=== PATIENT | male | born 1965 ===

== ENCOUNTER 2016-12-17 17:31 | Inpatient (IN) | payer MEDICARE, MEDICAID ==
--- NOTE | 2016-12-17 18:15 | C.PDOC ---
History Of Present Illness 51 year old male well known to the ED presents to the ED brought in by EMS after being found intoxicated in public. Patient is poor historian due to intoxication. No medical complaints at this time. Chief Complaint (Nursing): Substance Abuse History Per: Patient History/Exam Limitations: intoxication Onset/Duration Of Symptoms: Unknown Past Medical History Reviewed: Historical Data, Nursing Documentation, Vital Signs Vital Signs: Last Vital Signs Temp 98.2 F 12/17/16 22:52 Pulse 96 H 12/17/16 22:52 Resp 20 12/17/16 22:52 BP 109/61 12/17/16 22:52 Pulse Ox 95 12/18/16 00:26 - Medical History PMH: Bipolar Disorder, Gastritis, HTN, Seizures Denies: Diabetes, Hepatitis, HIV, Chronic Kidney Disease, Sexually Transmitted Disease Surgical History: Hernia Repair (b/l inguinal) - [facility] Procedures CONTRAST AORTOGRAM (09/15/14) CONTRAST ARTERIOGRAM-LEG (09/15/14) IMMOBILIZATION OF LEFT LOWER EXTREMITY USING OTHER DEVICE (12/05/14) INJECT/INFUSE NEC (07/01/14) OP RED-INT FIX TIB/FIBUL (09/15/14) PACKED CELL TRANSFUSION (09/15/14) VACCINATION NEC (09/15/14) Family History: States: Unknown Family Hx - Social History Hx Tobacco Use: Yes Hx Alcohol Use: Yes Hx Substance Use: No Review Of Systems Review Of Systems: ROS cannot be obtained secondary to pt's inabilty to answer questions. (Intoxicated) Physical Exam - Physical Exam Appears: No Acute Distress, Other (Patient appears intoxicated ) Skin: Normal Color, Warm, Dry Head: Atraumatic, Normacephalic Eye(s): bilateral: Normal Inspection, PERRL, EOMI Oral Mucosa: Moist Cardiovascular: Rhythm Regular, No Murmur Respiratory: Normal Breath Sounds (Clear to ascultation ) Extremity: No Pedal Edema, No Deformity Neurological/Psych: Oriented x3 ED Course And Treatment - Laboratory Results Result Diagrams: 12/17/16 22:30 12/17/16 22:30 O2 Sat by Pulse Oximetry: 95 Medical Decision Making Medical Decision Making: Hb 8.3. Patient denies hematuria, dysuria, blood in stool, and blood in vomit. Occult blood in stool negative. Spoke with Dr. Mccabe and will admit patient to the floor for further workup. Patient is ambulating in the ED without dizziness or complaints. Disposition - Disposition Disposition Time: 23:00 Condition: STABLE Forms: [facility] ([place]) - Clinical Impression Clinical Impression: Alcohol abuse, Alcohol dependence, Anemia
[2016-12-17 22:35] LABS: HEMATOCRIT 25.2 % (35.0-51.0); MEAN CELL VOLUME 94.4 fL (80.0-94.0); MEAN CORPUSCULAR HEMOGLOBIN 31.1 pg (27.0-31.0); MEAN CORPUSCULAR HGB CONC 32.9 g/dL (33.0-37.0); MEAN PLATELET VOLUME 9.5 fL (7.2-11.7); PLATELET COUNT 313 K/uL (130-400); RED CELL DISTRIBUTION WIDTH 16.5 % (11.5-14.5); WHITE BLOOD COUNT 6.3 K/uL (4.8-10.8)
[2016-12-17 22:41] LABS: CHLORIDE 108 mmol/L (98-107); RBC URINE 2 /hpf (0-3); URINE BILIRUBIN NEGATIVE (NEGATIVE); URINE BLOOD NEGATIVE (NEGATIVE); URINE COLOR Yellow (YELLOW); URINE GLUCOSE (UA) NORMAL (Normal); URINE HYALINE CAST >20 /lpf (0-2); URINE KETONE NEGATIVE (NEGATIVE); URINE LEUKOCYTE ESTERASE NEG Leu/uL (Negative); URINE PROTEIN NEGATIVE (NEGATIVE); URINE UROBILINOGEN NORMAL mg/dL (0.2-1.0); WBC URINE 3 /hpf (0-5)
[2016-12-17 22:42] LABS: POTASSIUM 4.1 mmol/L (3.6-5.2); SODIUM 141 mmol/L (132-148)
[2016-12-17 22:44] LABS: ALKALINE PHOSPHATASE 260 U/L (38-126); ALT/SGPT 31 U/L (21-72); AST/SGOT 53 U/L (17-59); BILIRUBIN,TOTAL 0.3 mg/dL (0.2-1.3); BLOOD UREA NITROGEN 24 mg/dL (9-20); CARBON DIOXIDE 21 mmol/L (22-30); GFR AFRICAN-AMERICAN > 60; GLUCOSE,RANDOM 95 mg/dL (75-110); TOTAL PROTEIN 7.2 g/dL (6.3-8.3)
[2016-12-17 22:45] LABS: ALCOHOL SERUM 222 mg/dl (0-10); CALCIUM 7.9 mg/dl (8.6-10.4)
[2016-12-17 22:46] LABS: ALB/GLOB RATIO 0.8 (1.0-2.1)
[2016-12-17 23:19] LABS: BASOPHIL 2 % (0-2); EOSINOPHIL 9 % (0-4); NEUTROPHIL 35 % (50-75); TOTAL CELLS COUNTED 100
[2016-12-18 00:17] LABS: INR 1.1
[2016-12-18] MEDS ORDERED: Multivitamin (MVI) 10 ML, Thiamine 100 MG, Folic Acid 1 MG in Sodium Chloride 0.9% 1,00... IV ONE (01:07)
--- NOTE | 2016-12-18 01:17 | CP.PCM.HP ---
<Jacy Cabrera - Last Filed: 12/18/16 01:43> History of Present Illness - History of Present Illness History of Present Illness: Patient is a 51 year old male with a past medical history of hypertension, alcohol abuse, and seizures, who presents to the ED brought in by EMS for public intoxication. In the ED, patient was found to have a hemoglobin of 8.3 ( decreased from 11.3 at last ER visit on 11/08/16). Patient is uncooperative and agitated. Patient reports he does not drink or use drugs, he does not answer or respond to review of systems. As per nursing, patient reports using alcohol but does not reports when he last used. Patient's history is limited and is obtained from previous EMR notes due to patients condition. PMD: Dr. Mahin Huerta PMHx: hypertension, alcohol abuse, and seizures SocHx: alcohol abuse Allergies: aspirin, ibuprofen Medications: See EMR Present on Admission - Present on Admission Any Indicators Present on Admission: No Review of Systems - Review of Systems Systems not reviewed;Unavailable: Altered Mental Status, Intoxicated, Uncooperative Past Patient History - Infectious Disease Hx of Infectious Diseases: None - Past Medical History & Family History Past Medical History?: Yes - Past Social History Smoking Status: Never Smoked - CARDIAC Hx Hypertension: Yes - PULMONARY Hx Tuberculosis: No - NEUROLOGICAL Hx Seizures: Yes - HEENT Hx HEENT Problems: No - RENAL Hx Chronic Kidney Disease: No - ENDOCRINE/METABOLIC Hx Endocrine Disorders: No - HEMATOLOGICAL/ONCOLOGICAL Hx Human Immunodeficiency Virus (HIV): No - INTEGUMENTARY Hx Dermatological Problems: Yes (Hx of LE rash b/l, he's not sure of dx.) - MUSCULOSKELETAL/RHEUMATOLOGICAL Hx Musculoskeletal Disorders: Yes Hx Falls: Yes - GASTROINTESTINAL Hx Gastritis: Yes - GENITOURINARY/GYNECOLOGICAL Hx Sexually Transmitted Disorders: No - PSYCHIATRIC Hx Bipolar Disorder: Yes Hx Substance Use: No - SURGICAL HISTORY Hx Surgeries: Yes Hx Splenectomy: Yes Other/Comment: "left arm" sx - ANESTHESIA Hx Anesthesia: Yes Hx Anesthesia Reactions: No Meds Allergies/Adverse Reactions: Allergies Allergy/AdvReac Type Severity Reaction Status Date / Time aspirin Allergy SHORTNESS Verified 11/06/15 01:01 OF BREATH ibuprofen [From Motrin] Allergy SHORTNESS Verified 11/06/15 01:01 OF BREATH Physical Exam - Constitutional Appears: Unkempt, Agitated - Head Exam Head Exam: ATRAUMATIC, NORMAL INSPECTION - Eye Exam Eye Exam: EOMI Pupil Exam: Miosis - ENT Exam ENT Exam: Mucous Membranes Moist - Respiratory Exam Respiratory Exam: Clear to Auscultation Bilateral, NORMAL BREATHING PATTERN. absent: Rhonchi, Wheezes, Respiratory Distress - Cardiovascular Exam Cardiovascular Exam: REGULAR RHYTHM, +S1, +S2. absent: Bradycardia, Tachycardia - GI/Abdominal Exam GI & Abdominal Exam: Normal Bowel Sounds, Soft. absent: Distended, Firm, Guarding, Tenderness - Extremities Exam Extremities exam: Positive for: normal inspection, pedal pulses present. Negative for: pedal edema, tenderness - Neurological Exam Neurological exam: Alert - Psychiatric Exam Psychiatric exam: Agitated - Skin Skin Exam: Dry, Normal Color, Warm Additional comments: Hx of laceration on lower mid back- 9 sutures (as per nursing); blood tinged dressing Results - Vital Signs Recent Vital Signs: Last Vital Signs Temp 98.3 F 12/18/16 00:57 Pulse 96 H 12/18/16 00:57 Resp 20 12/18/16 00:57 BP 126/77 12/18/16 00:57 Pulse Ox 96 12/18/16 00:57 - Labs Result Diagrams: 12/17/16 22:30 12/17/16 22:30 Labs: Laboratory Results - last 24 hr 12/17/16 12/17/16 12/17/16 22:30 22:30 22:30 WBC 6.3 RBC 2.67 L Hgb 8.3 L D Hct 25.2 L MCV 94.4 H D MCH 31.1 H MCHC 32.9 L RDW 16.5 H Plt Count 313 D MPV 9.5 Neutrophils % (Manual) 35 L Lymphocytes % (Manual) 34 Monocytes % (Manual) 20 H Eosinophils % (Manual) 9 H Basophils % (Manual) 2 Platelet Estimate Normal Poikilocytosis (manual Slight Anisocytosis (manual) Slight PT INR APTT Sodium 141 Potassium 4.1 Chloride 108 H Carbon Dioxide 21 L Anion Gap 16 BUN 24 H Creatinine 1.2 Est GFR ( Amer) > 60 Est GFR (Non-Af Amer) > 60 Random Glucose 95 Calcium 7.9 L Total Bilirubin 0.3 AST 53 ALT 31 Alkaline Phosphatase 260 H Total Protein 7.2 Albumin 3.1 L D Globulin 4.1 H Albumin/Globulin Ratio 0.8 L Urine Color Yellow Urine Clarity Clear Urine pH 5.0 Ur Specific [place] 1.013 Urine Protein Negative Urine Glucose (UA) Normal Urine Ketones Negative Urine Blood Negative Urine Nitrate Negative Urine Bilirubin Negative Urine Urobilinogen Normal Ur Leukocyte Esterase Neg Urine WBC (Auto) 3 Urine RBC (Auto) 2 Hyaline Casts >20 H Stool Occult Blood Urine Opiates Screen Urine Methadone Screen Ur Barbiturates Screen Ur Phencyclidine Scrn Ur Amphetamines Screen U Benzodiazepines Scrn U Oth Cocaine Metabols U Cannabinoids Screen Alcohol, Quantitative 222 H Blood Type Antibody Screen 12/17/16 12/17/16 12/17/16 22:30 23:17 23:47 WBC RBC Hgb Hct MCV MCH MCHC RDW Plt Count MPV Neutrophils % (Manual) Lymphocytes % (Manual) Monocytes % (Manual) Eosinophils % (Manual) Basophils % (Manual) Platelet Estimate Poikilocytosis (manual Anisocytosis (manual) PT INR APTT Sodium Potassium Chloride Carbon Dioxide Anion Gap BUN Creatinine Est GFR ( Amer) Est GFR (Non-Af Amer) Random Glucose Calcium Total Bilirubin AST ALT Alkaline Phosphatase Total Protein Albumin Globulin Albumin/Globulin Ratio Urine Color Urine Clarity Urine pH Ur Specific [place] Urine Protein Urine Glucose (UA) Urine Ketones Urine Blood Urine Nitrate Urine Bilirubin Urine Urobilinogen Ur Leukocyte Esterase Urine WBC (Auto) Urine RBC (Auto) Hyaline Casts Stool Occult Blood Negative Urine Opiates Screen Negative Urine Methadone Screen Negative Ur Barbiturates Screen Positive Ur Phencyclidine Scrn Negative Ur Amphetamines Screen Negative U Benzodiazepines Scrn Negative U Oth Cocaine Metabols Negative U Cannabinoids Screen Positive Alcohol, Quantitative Blood Type O POSITIVE Antibody Screen Negative 12/17/16 23:49 WBC RBC Hgb Hct MCV MCH MCHC RDW Plt Count MPV Neutrophils % (Manual) Lymphocytes % (Manual) Monocytes % (Manual) Eosinophils % (Manual) Basophils % (Manual) Platelet Estimate Poikilocytosis (manual Anisocytosis (manual) PT 12.1 INR 1.1 APTT 30 Sodium Potassium Chloride Carbon Dioxide Anion Gap BUN Creatinine Est GFR ( Amer) Est GFR (Non-Af Amer) Random Glucose Calcium Total Bilirubin AST ALT Alkaline Phosphatase Total Protein Albumin Globulin Albumin/Globulin Ratio Urine Color Urine Clarity Urine pH Ur Specific [place] Urine Protein Urine Glucose (UA) Urine Ketones Urine Blood Urine Nitrate Urine Bilirubin Urine Urobilinogen Ur Leukocyte Esterase Urine WBC (Auto) Urine RBC (Auto) Hyaline Casts Stool Occult Blood Urine Opiates Screen Urine Methadone Screen Ur Barbiturates Screen Ur Phencyclidine Scrn Ur Amphetamines Screen U Benzodiazepines Scrn U Oth Cocaine Metabols U Cannabinoids Screen Alcohol, Quantitative Blood Type Antibody Screen Assessment & Plan (1) Alcohol abuse with intoxication Assessment and Plan: CIWA Librium Taper Aspiration, fall, and seizure precautions IVF with multivitamin, folic acid, thiamine Alcohol toxicology: 222 UDS: positive for cannabinoids, barbituates Status: Acute (2) Anemia Assessment and Plan: Hgb 8.3 (decreased from 11.3 11/08/16) Stool occult negative Type & Screen F/U: iron, ferritin, %saturation TIBC, Retic count, folate, vitamin b12 Monitor H/H Status: Acute (3) Seizure disorder Assessment and Plan: Pepcid 20mg PO daily Aspiration, Fall, and Seizure precautions Heart healthy diet 02 via nasal cannula as needed Status: Acute (4) Prophylactic measure Status: Acute <Niraj Mccabe - Last Filed: 12/18/16 06:20> Results - Vital Signs Recent Vital Signs: Last Vital Signs Temp 98 F 12/18/16 01:26 Pulse 89 12/18/16 01:26 Resp 20 12/18/16 01:26 BP 119/67 12/18/16 01:26 Pulse Ox 94 L 12/18/16 01:26 - Labs Result Diagrams: 12/17/16 22:30 12/17/16 22:30 Labs: Laboratory Results - last 24 hr 12/17/16 12/17/16 12/17/16 22:30 22:30 22:30 WBC 6.3 RBC 2.67 L Hgb 8.3 L D Hct 25.2 L MCV 94.4 H D MCH 31.1 H MCHC 32.9 L RDW 16.5 H Plt Count 313 D MPV 9.5 Neutrophils % (Manual) 35 L Lymphocytes % (Manual) 34 Monocytes % (Manual) 20 H Eosinophils % (Manual) 9 H Basophils % (Manual) 2 Platelet Estimate Normal Poikilocytosis (manual Slight Anisocytosis (manual) Slight PT INR APTT Sodium 141 Potassium 4.1 Chloride 108 H Carbon Dioxide 21 L Anion Gap 16 BUN 24 H Creatinine 1.2 Est GFR ( Amer) > 60 Est GFR (Non-Af Amer) > 60 Random Glucose 95 Calcium 7.9 L Total Bilirubin 0.3 AST 53 ALT 31 Alkaline Phosphatase 260 H Total Protein 7.2 Albumin 3.1 L D Globulin 4.1 H Albumin/Globulin Ratio 0.8 L Urine Color Yellow Urine Clarity Clear Urine pH 5.0 Ur Specific [place] 1.013 Urine Protein Negative Urine Glucose (UA) Normal Urine Ketones Negative Urine Blood Negative Urine Nitrate Negative Urine Bilirubin Negative Urine Urobilinogen Normal Ur Leukocyte Esterase Neg Urine WBC (Auto) 3 Urine RBC (Auto) 2 Hyaline Casts >20 H Stool Occult Blood Urine Opiates Screen Urine Methadone Screen Ur Barbiturates Screen Ur Phencyclidine Scrn Ur Amphetamines Screen U Benzodiazepines Scrn U Oth Cocaine Metabols U Cannabinoids Screen Alcohol, Quantitative 222 H Blood Type Antibody Screen 12/17/16 12/17/16 12/17/16 22:30 23:17 23:47 WBC RBC Hgb Hct MCV MCH MCHC RDW Plt Count MPV Neutrophils % (Manual) Lymphocytes % (Manual) Monocytes % (Manual) Eosinophils % (Manual) Basophils % (Manual) Platelet Estimate Poikilocytosis (manual Anisocytosis (manual) PT INR APTT Sodium Potassium Chloride Carbon Dioxide Anion Gap BUN Creatinine Est GFR ( Amer) Est GFR (Non-Af Amer) Random Glucose Calcium Total Bilirubin AST ALT Alkaline Phosphatase Total Protein Albumin Globulin Albumin/Globulin Ratio Urine Color Urine Clarity Urine pH Ur Specific [place] Urine Protein Urine Glucose (UA) Urine Ketones Urine Blood Urine Nitrate Urine Bilirubin Urine Urobilinogen Ur Leukocyte Esterase Urine WBC (Auto) Urine RBC (Auto) Hyaline Casts Stool Occult Blood Negative Urine Opiates Screen Negative Urine Methadone Screen Negative Ur Barbiturates Screen Positive Ur Phencyclidine Scrn Negative Ur Amphetamines Screen Negative U Benzodiazepines Scrn Negative U Oth Cocaine Metabols Negative U Cannabinoids Screen Positive Alcohol, Quantitative Blood Type O POSITIVE Antibody Screen Negative 12/17/16 23:49 WBC RBC Hgb Hct MCV MCH MCHC RDW Plt Count MPV Neutrophils % (Manual) Lymphocytes % (Manual) Monocytes % (Manual) Eosinophils % (Manual) Basophils % (Manual) Platelet Estimate Poikilocytosis (manual Anisocytosis (manual) PT 12.1 INR 1.1 APTT 30 Sodium Potassium Chloride Carbon Dioxide Anion Gap BUN Creatinine Est GFR ( Amer) Est GFR (Non-Af Amer) Random Glucose Calcium Total Bilirubin AST ALT Alkaline Phosphatase Total Protein Albumin Globulin Albumin/Globulin Ratio Urine Color Urine Clarity Urine pH Ur Specific [place] Urine Protein Urine Glucose (UA) Urine Ketones Urine Blood Urine Nitrate Urine Bilirubin Urine Urobilinogen Ur Leukocyte Esterase Urine WBC (Auto) Urine RBC (Auto) Hyaline Casts Stool Occult Blood Urine Opiates Screen Urine Methadone Screen Ur Barbiturates Screen Ur Phencyclidine Scrn Ur Amphetamines Screen U Benzodiazepines Scrn U Oth Cocaine Metabols U Cannabinoids Screen Alcohol, Quantitative Blood Type Antibody Screen Assessment & Plan - Date & Time Date: 12/18/16 (I have seen and examined the patient. I agree with the findings and plan of care as documented by Dr. Cabrera. Patient with alcohol abuse. Requesting detox. However now with anemia worsened from 3 weeks ago. [facility] protocol. Check anemia panel. Continue home meds for seizure history once patient's home dosages found from pharmacy. Monitor for acute changes.) Time: 06:18 Attending/Attestation - Attestation I have personally seen and examined this patient.: Yes I have fully participated in the care of the patient.: Yes I have reviewed all pertinent clinical information: Yes
--- NOTE | 2016-12-18 09:28 | CP.PCM.PN ---
<Neo Gardunoa - Last Filed: 12/18/16 13:09> Subjective - Date & Time of Evaluation Date of Evaluation: 12/18/16 Time of Evaluation: 07:00 - Subjective Subjective: Medicine Note for Dr. Colvin Patient was seen and examined at bedside. No acute complaints. Denied fever, chills, headache, chest pain, SOB, abdominal pain, n/v/d/c, or urinary symptoms. Objective - Vital Signs/Intake and Output Vital Signs (last 24 hours): Temp Pulse Resp BP Pulse Ox 98.1 F 85 20 173/88 H 97 12/18/16 08:00 12/18/16 08:00 12/18/16 08:00 12/18/16 08:00 12/18/16 08:00 - Medications Medications: Current Medications Chlordiazepoxide (Librium) 25 mg PO Q6H [facility] PRN Reason: Taper Stop: 12/22/16 05:59 Last Admin: 12/18/16 05:32 Dose: 25 mg Famotidine (Pepcid) 20 mg PO DAILY [facility] Folic Acid (Folic Acid) 1 mg PO DAILY [facility] Multivitamins/Vitamin C 10 ml/Thiamine HCl 100 mg/ Folic Acid 1 mg/ Sodium Chloride 1,011.2 mls @ 75 mls/hr IV .[id number] ONE Stop: 12/18/16 14:35 Last Admin: 12/18/16 03:00 Dose: 75 mls/hr Levetiracetam (Keppra) 1,000 mg PO BID [facility] Lorazepam (Ativan) 2 mg IVP Q6H PRN PRN Reason: EtOH Withdrawal Last Admin: 12/18/16 07:35 Dose: 2 mg Pneumococcal Polyvalent Vaccine (Pneumovax 23 Vaccine) 0.5 ml IM .ONCE ONE Stop: 12/20/16 14:01 Thiamine HCl (Vitamin B1 Tab) 100 mg PO DAILY [facility] - Labs Labs: 12/17/16 22:30 12/17/16 22:30 PT 12.1 SECONDS (9.7-12.2) 12/17/16 23:49 INR 1.1 12/17/16 23:49 APTT 30 SECONDS (21-34) 12/17/16 23:49 - Additional Findings Additional findings: - Constitutional Appears: Unkempt, Agitated - Head Exam Head Exam: ATRAUMATIC, NORMAL INSPECTION - Eye Exam Eye Exam: EOMI Pupil Exam: Miosis - ENT Exam ENT Exam: Mucous Membranes Moist - Respiratory Exam Respiratory Exam: Clear to Auscultation Bilateral, NORMAL BREATHING PATTERN. absent: Rhonchi, Wheezes, Respiratory Distress - Cardiovascular Exam Cardiovascular Exam: REGULAR RHYTHM, +S1, +S2. absent: Bradycardia, Tachycardia - GI/Abdominal Exam GI & Abdominal Exam: Normal Bowel Sounds, Soft. absent: Distended, Firm, Guarding, Tenderness - Extremities Exam Extremities exam: Positive for: normal inspection, pedal pulses present. Negative for: pedal edema, tenderness - Neurological Exam Neurological exam: Alert - Psychiatric Exam Psychiatric exam: Agitated - Skin Skin Exam: Dry, Normal Color, Warm Additional comments: Hx of laceration on lower mid back- 9 sutures (as per nursing); blood tinged dressing Assessment and Plan - Assessment and Plan (Free Text) Plan: Alcohol abuse with intoxication CIWA Protocol Librium Taper Aspiration, fall, and seizure precautions IVF with multivitamin, folic acid, thiamine Alcohol toxicology: 222 UDS: positive for cannabinoids, barbituates Ativan 2mg IVP PRN Anemia Hgb 8.3 (decreased from 11.3 11/08/16) Stool occult negative Type & Screen if continuing to downtrend, will transfuse Monitor H/H F/U: iron, ferritin, %saturation TIBC, Retic count, folate, vitamin b12 S/P EGD with ligation Patient reports 2 weeks ago, at [facility] he underwent and EGD, which required him to have a few clips placed in Denied any UGI, LGI, hemetemasis, melena, bloody stool Monitor H/H Seizure disorder Aspiration, Fall, and Seizure precautions Keppra 1000mg PO BID Prophylactic measure GI PPX: Pepcid 20mg PO daily DVT PPX: SCDs, lovenox Heart healthy diet 02 via nasal cannula as needed DW Shaan Velez DO, PGY-1 <Arley Colvin H - Last Filed: 12/18/16 17:16> Objective - Vital Signs/Intake and Output Vital Signs (last 24 hours): Temp Pulse Resp BP Pulse Ox 98.2 F 72 20 154/83 H 96 12/18/16 16:13 12/18/16 16:13 12/18/16 16:13 12/18/16 16:13 12/18/16 16:13 - Medications Medications: Current Medications Chlordiazepoxide (Librium) 25 mg PO Q6H [facility] PRN Reason: Taper Stop: 12/22/16 05:59 Last Admin: 12/18/16 12:47 Dose: 25 mg Enoxaparin Sodium (Lovenox) 40 mg SC DAILY [facility] Last Admin: 12/18/16 10:20 Dose: 40 mg Famotidine (Pepcid) 20 mg PO DAILY [facility] Last Admin: 12/18/16 10:20 Dose: 20 mg Folic Acid (Folic Acid) 1 mg PO DAILY [facility] Last Admin: 12/18/16 10:20 Dose: 1 mg Levetiracetam (Keppra) 1,000 mg PO BID [facility] Last Admin: 12/18/16 10:19 Dose: 1,000 mg Lorazepam (Ativan) 2 mg IVP Q6H PRN PRN Reason: EtOH Withdrawal Last Admin: 12/18/16 07:35 Dose: 2 mg Pneumococcal Polyvalent Vaccine (Pneumovax 23 Vaccine) 0.5 ml IM .ONCE ONE Stop: 12/20/16 14:01 Thiamine HCl (Vitamin B1 Tab) 100 mg PO DAILY [facility] Last Admin: 12/18/16 10:19 Dose: 100 mg - Labs Labs: 12/17/16 22:30 12/17/16 22:30 PT 12.1 SECONDS (9.7-12.2) 12/17/16 23:49 INR 1.1 12/17/16 23:49 APTT 30 SECONDS (21-34) 12/17/16 23:49 Attending/Attestation - Attestation I have personally seen and examined this patient.: Yes I have fully participated in the care of the patient.: Yes I have reviewed all pertinent clinical information, including history, physical exam and plan: Yes Notes (Text): 12/18/16 17:14 Medical attending: Patient was seen and examined by me, agree with the above note by medical csr. This is my first time meeting the patient, so I had reviewed the previous notes , discussed with the medical residents, and also introduced myself and discussed with the patient. As mentioned previously patient is currently on Librium as well as when necessary Ativan as well as banana bag intravenous fluids. There is an extensive history of alcohol use. Currently the patient is not having any shaking or tremors on exam. He seems to be mentating quite well. He' s answering questions appropriately. He denied having any nausea or vomiting, denied abdominal pain. He does report a very poor appetite this might be a reflection of his history of heavy alcohol On exam this is a very cachectic appearing as well as much older than stated age. We'll monitor his electrolytes as well as any symptoms of alcohol withdrawal Thank you very much, Arley Colvin
[2016-12-18] MEDS: Enoxaparin 40 mg Syringe SC SCH (10:20)
--- NOTE | 2016-12-18 14:34 | PCM.PSYCH ---
Initial Psychiatric Evaluation - Initial Psychiatric Evaluation Type of Admission: Voluntary Legal Status: Capacity Chief Complaint (in patient's own words): Consulted for history of alcohol abuse. History of Present Illness and Precipitating Events: Pt is a 51 year old male with a PMH of HTN, Alcohol abuse, and seizures who presented to the ED brought in by EMS for public intoxication. He is single, has no children and lives alone in [place], [place] but does have two home health aids who come in and help him. Pt is currently collects Social Security and Disability benefits. Highest level of education is the 10th grade. Pt denies any current legal problems or probation. Pt reports he drinks approximately a 6 pack of beer a day. Pt reports that he has been drinking alcohol since the age of 17. Pt reports that this was something he did with this father, who has now passed. Pt reports that after his , he has been drinking more often. Pt reports his longest period of sobriety was a 6 month period during which he was living in a assisted, and once he was discharged he started to consume alcohol again. This was approximately 2 years ago. Pt reports that in the past when he has stopped drinking he has suffered from seizures, disorientation and tremors. Denies DTs. Pt denies any other substance use and denies smoking cigarettes. Pt reports multiple detoxes in the past and rehabs in the past but states "I just go back to drinking". Pt is not currently experiencing withdrawal symptoms, Denies tremors, sweating. Pt denies any previous psychiatric history, psychiatric admissions and family history of psychiatric illness. Pt reports that his brother also consumes alcohol. After care discussed. Pt states that upon discharge he will return home and continue to live. At this point the patient does not seem interested in any rehab programs. Current Medications: Active Medications Generic Name Dose Route Start Last Admin Trade Name Freq PRN Reason Stop Dose Admin Chlordiazepoxide 25 mg 12/18/16 06:00 12/18/16 12:47 Librium PO 12/22/16 05:59 25 mg Q6H GHAZAL Administration Taper Enoxaparin Sodium 40 mg 12/18/16 10:00 12/18/16 10:20 Lovenox SC 40 mg DAILY GHAZAL Administration Famotidine 20 mg 12/18/16 10:00 12/18/16 10:20 Pepcid PO 20 mg DAILY GHAZAL Administration Folic Acid 1 mg 10/16/17 10:00 12/18/16 10:20 Folic Acid PO 1 mg DAILY GHAZAL Administration Multivitamins/Vitamin C 10 ml/ 1,011.2 mls @ 75 mls/hr 12/18/16 01:07 03:00 Thiamine HCl 100 mg/ Folic IV 12/18/16 14:35 75 mls/hr Acid 1 mg/ Sodium Chloride .[id number] ONE Administration Levetiracetam 1,000 mg 12/18/16 10:00 12/18/16 10:19 Keppra PO 1,000 mg BID GHAZAL Administration Lorazepam 2 mg 12/18/16 07:26 12/18/16 07:35 Ativan IVP 2 mg Q6H PRN Administration EtOH Withdrawal Pneumococcal Polyvalent Vaccine 0.5 ml 12/20/16 14:00 Pneumovax 23 Vaccine IM 12/20/16 14:01 .ONCE ONE Thiamine HCl 100 mg 12/18/16 10:00 12/18/16 10:19 Vitamin B1 Tab PO 100 mg DAILY GHAZAL Administration Past Psychiatric History - Past Psychiatric History Pertinent Medical Hx (Current Medical&Sleep Prob, Allergies): Allergies Allergy/AdvReac Type Severity Reaction Status Date / Time aspirin Allergy SHORTNESS Verified 11/06/15 01:01 OF BREATH ibuprofen [From Motrin] Allergy SHORTNESS Verified 11/06/15 01:01 OF BREATH Amoxicillin/Potassium Clav [Augmentin 875-125 Tablet] 1 each PO BID #0 tablet Calcium Carbonate/Vitamin D3 [Calcium 600-Vit D3 200 Tablet] 1 tab PO DAILY #0 tablet 06/12/15 Carvedilol [Coreg] 25 mg PO Q8H #0 tab 06/12/15 Ferrous Sulfate [Ferosul] 325 mg PO DAILY #0 tablet 06/12/15 Folic Acid 2 mg PO DAILY #0 tab 06/12/15 Lisinopril [Zestril] 20 mg PO DAILY #0 tablet 06/12/15 Magnesium Oxide [Magox 400] 400 mg PO TID #0 tablet 06/12/15 Omeprazole [Prilosec] 20 mg PO DAILY #0 capsule. 06/12/15 QUEtiapine [SEROquel] 50 mg PO HS #0 tab 06/12/15 Sennosides [Senna] 1 tab PO HS #0 tablet 06/12/15 Thiamine [Vitamin B1 Tab] 100 mg PO DAILY #0 tab 06/12/15 Topiramate [Topamax] 50 mg PO BID #0 tab 06/12/15 amLODIPine [Norvasc] 5 mg PO DAILY #0 tab 06/12/15 levETIRAcetam [Keppra] 750 mg PO BID #0 tab 06/12/15 Levetiracetam [Keppra] 1,000 mg PO BID #120 tablet 11/08/16 Review of Systems - Neurological Neurological: UNREMARKABLE - Psychiatric Psychiatric: absent: Confusion, Depression, Hallucinations, Homicidal Ideation, Suicidal Ideation Mental Status Examination - Personal Presentation Personal Presentation: Looks stated age - Affect Affect: Constricted - Motor Activity Motor Activity: Calm Additional comments: Reluctant to answer questions - Reliability in Providing Information Reliability in Providing Information: Good - Speech Speech: Organized, Relevant, Coherent - Mood Mood: Neutral - Formal Thought Process Formal Thought Process: No Impairment - Obsessions/Compulsions Obsessions: No Compulsions: No - Cognitive Functions Orientation: Person, Place, Situation, Time Sensorium: Alert Attention/Concentration: Attentive Estimate of Intelligence: Average Judgement: Intact, as evidence by: Other Memory: Recent intact, as evidence by: Ability to recall events of the day, Remote intact, as evidenced by: Abilit to recall sig. life events - Risk Risk: Seizure, Withdrawal, Falls - Strength & Assets Inventory Strength & Assets Inventory: Life experience - Limitations Limitations: Living alone DSM 5 DX - DSM 5 DSM 5 Diagnosis: Alcohol use disorder, severe Alcohol withdrawal - Recommended/Plan of Treatment Treatment Recommendations and Plan of Treatment: Librium Taper Folic Acid 1mg PO DAILY Keppra 1000mg PO BID Ativan 2mg IVP Q6H PRN Thiamine 100mg PO DAILY Continue as needed medications Attend groups and activities Supportive therapy and psychoeducation [place] for abstinence CBT for relapse prevention Encourage MAT Refer to rehab or IOP Attend self-help groups as well Projected ELOS: 4-5 days Prognosis: Fair with treatment
[2016-12-19 07:34] LABS: BASO # 0.2 K/uL (0.0-0.2); BASO % 2.2 % (0.0-2.0); EOS # 0.4 K/uL (0.0-0.7); EOS % 4.5 % (0.0-4.0); LYMPH # 2.2 K/uL (1.0-4.3); LYMPH % 24.4 % (20.0-40.0); MEAN CELL VOLUME 93.5 fL (80.0-94.0); MEAN CORPUSCULAR HEMOGLOBIN 31.1 pg (27.0-31.0); MEAN CORPUSCULAR HGB CONC 33.2 g/dL (33.0-37.0); MEAN PLATELET VOLUME 10.1 fL (7.2-11.7); MONO # 2.3 K/uL (0.0-0.8); MONO % 24.9 % (0.0-10.0); NRBC % 0.1 % (0.0-2.0); PLATELET COUNT 358 K/uL (130-400); RED CELL DISTRIBUTION WIDTH 15.9 % (11.5-14.5); WHITE BLOOD COUNT 9.2 K/uL (4.8-10.8)
--- NOTE | 2016-12-19 07:44 | CP.PCM.PN ---
<Kajal Garduno - Last Filed: 12/19/16 11:47> Subjective - Date & Time of Evaluation Date of Evaluation: 12/19/16 Time of Evaluation: 07:00 - Subjective Subjective: Medicine Note for Dr. Colvin Patient was seen and examined at bedside. No acute complaints. Denied fever, chills, headache, chest pain, SOB, abdominal pain, n/v/d/c, or urinary symptoms. Objective - Vital Signs/Intake and Output Vital Signs (last 24 hours): Temp Pulse Resp BP Pulse Ox 98.2 F 78 20 159/84 H 96 12/18/16 23:30 12/18/16 23:30 12/18/16 23:30 12/18/16 23:30 12/18/16 23:30 Intake and Output: 12/19/16 12/19/16 06:59 18:59 Output Total 400 Balance -400 - Medications Medications: Current Medications Chlordiazepoxide (Librium) 25 mg PO Q8H [facility]HAZAL PRN Reason: Taper Stop: 12/22/16 05:59 Last Admin: 12/19/16 06:11 Dose: 25 mg Enoxaparin Sodium (Lovenox) 40 mg SC DAILY [facility] Last Admin: 12/18/16 10:20 Dose: 40 mg Famotidine (Pepcid) 20 mg PO DAILY [facility] Last Admin: 12/18/16 10:20 Dose: 20 mg Folic Acid (Folic Acid) 1 mg PO DAILY [facility] Last Admin: 12/18/16 10:20 Dose: 1 mg Hydralazine HCl (Apresoline) 10 mg IVP Q6H PRN PRN Reason: Systolic Blood Pressure Levetiracetam (Keppra) 1,000 mg PO BID [facility] Last Admin: 12/18/16 17:41 Dose: 1,000 mg Lorazepam (Ativan) 2 mg IVP Q6H PRN PRN Reason: EtOH Withdrawal Last Admin: 12/19/16 00:45 Dose: 2 mg Pneumococcal Polyvalent Vaccine (Pneumovax 23 Vaccine) 0.5 ml IM .ONCE ONE Stop: 12/20/16 14:01 Thiamine HCl (Vitamin B1 Tab) 100 mg PO DAILY [facility] Last Admin: 12/18/16 10:19 Dose: 100 mg - Labs Labs: 12/19/16 07:23 12/17/16 22:30 PT 12.1 SECONDS (9.7-12.2) 12/17/16 23:49 INR 1.1 12/17/16 23:49 APTT 30 SECONDS (21-34) 12/17/16 23:49 - Additional Findings Additional findings: - Constitutional Appears: Unkempt, Agitated - Head Exam Head Exam: ATRAUMATIC, NORMAL INSPECTION - Eye Exam Eye Exam: EOMI Pupil Exam: Miosis - ENT Exam ENT Exam: Mucous Membranes Moist - Respiratory Exam Respiratory Exam: Clear to Auscultation Bilateral, NORMAL BREATHING PATTERN. absent: Rhonchi, Wheezes, Respiratory Distress - Cardiovascular Exam Cardiovascular Exam: REGULAR RHYTHM, +S1, +S2. absent: Bradycardia, Tachycardia - GI/Abdominal Exam GI & Abdominal Exam: Normal Bowel Sounds, Soft. absent: Distended, Firm, Guarding, Tenderness - Extremities Exam Extremities exam: Positive for: normal inspection, pedal pulses present. Negative for: pedal edema, tenderness - Neurological Exam Neurological exam: Alert - Psychiatric Exam Psychiatric exam: Agitated - Skin Skin Exam: Dry, Normal Color, Warm Additional comments: Hx of laceration on lower mid back- 9 sutures (as per nursing); blood tinged dressing Assessment and Plan - Assessment and Plan (Free Text) Plan: Alcohol abuse with intoxication [facility] Protocol Librium Taper PO multivitamin, folic acid, thiamine Alcohol toxicology: 222 UDS: positive for cannabinoids, barbituates Ativan 2mg IVP PRN Anemia Hgb 8.3 (decreased from 11.3 11/08/16) Stool occult negative Type & Screen if continuing to downtrend, will transfuse Monitor H/H Iron, ferritin, %saturation TIBC, Retic count- 2.7, folate, vitamin b12 - WNL S/P EGD with ligation Patient reports 2 weeks ago, at [facility] he underwent and EGD, which required him to have a few clips placed in Denied any UGI, LGI, hemetemasis, melena, bloody stool Monitor H/H Seizure disorder Aspiration, Fall, and Seizure precautions Keppra 1000mg PO BID Prophylactic measure GI PPX: Pepcid 20mg PO daily DVT PPX: SCDs, lovenox Heart healthy diet 02 via nasal cannula as needed Disposition: Patient will be discharged home, after completing Librium Taper on 12/22/16. Shaan Vargas Dr., DO, PGY-1 <Arley Colvin H - Last Filed: 12/19/16 14:01> Objective - Vital Signs/Intake and Output Vital Signs (last 24 hours): Temp Pulse Resp BP Pulse Ox 98.3 F 76 18 167/88 H 99 12/19/16 13:14 12/19/16 13:14 12/19/16 13:14 12/19/16 13:14 12/19/16 13:14 Intake and Output: 12/19/16 12/19/16 06:59 18:59 Output Total 400 Balance -400 - Medications Medications: Current Medications Chlordiazepoxide (Librium) 25 mg PO Q8H [facility] PRN Reason: Taper Stop: 12/22/16 05:59 Last Admin: 12/19/16 13:46 Dose: 25 mg Clonidine HCl (Catapres) 0.1 mg PO BID PRN PRN Reason: Systolic Blood Pressure Enoxaparin Sodium (Lovenox) 40 mg SC DAILY [facility] Last Admin: 12/19/16 09:06 Dose: 40 mg Famotidine (Pepcid) 20 mg PO DAILY [facility] Last Admin: 12/19/16 09:05 Dose: 20 mg Folic Acid (Folic Acid) 1 mg PO DAILY [facility] Last Admin: 12/19/16 09:06 Dose: 1 mg Levetiracetam (Keppra) 1,000 mg PO BID [facility] Last Admin: 12/19/16 09:06 Dose: 1,000 mg Lorazepam (Ativan) 1 mg PO TID PRN PRN Reason: Seizure activity Magnesium Oxide (Mag-Ox) 400 mg PO BID [facility] Stop: 12/20/16 10:46 Last Admin: 12/19/16 12:40 Dose: 400 mg Pneumococcal Polyvalent Vaccine (Pneumovax 23 Vaccine) 0.5 ml IM .ONCE ONE Stop: 12/20/16 14:01 Thiamine HCl (Vitamin B1 Tab) 100 mg PO DAILY [facility] Last Admin: 12/19/16 09:06 Dose: 100 mg - Labs Labs: 12/19/16 07:23 12/19/16 07:23 PT 12.1 SECONDS (9.7-12.2) 12/17/16 23:49 INR 1.1 12/17/16 23:49 APTT 30 SECONDS (21-34) 12/17/16 23:49 Attending/Attestation - Attestation I have personally seen and examined this patient.: Yes I have fully participated in the care of the patient.: Yes I have reviewed all pertinent clinical information, including history, physical exam and plan: Yes Notes (Text): 12/19/16 14:01 Medical attending: Patient was seen and examined by me, agrees the above note by ophthalmic medical technician. Today the patient was much more awake and alert, however he was very agitated, he seemed to be angry about something however he would not reveal to us when he was upset about. Because of this we kept our meeting and discussion with the patient short At this time were continue the Librium taper as well as the when necessary Ativan he did not have any shaking or tremors noted on exam Thank you very much, Arley Colvin
[2016-12-19 07:45] LABS: IRON 71 ug/dL (49-181)
[2016-12-19 07:54] LABS: CHLORIDE 101 mmol/L (98-107)
[2016-12-19 07:55] LABS: POTASSIUM 4.5 mmol/L (3.6-5.2); SODIUM 132 mmol/L (132-148)
[2016-12-19 07:57] LABS: ALB/GLOB RATIO 0.8 (1.0-2.1); ALKALINE PHOSPHATASE 256 U/L (38-126); ALT/SGPT 30 U/L (21-72); AST/SGOT 48 U/L (17-59); BILIRUBIN,TOTAL 0.8 mg/dL (0.2-1.3); BLOOD UREA NITROGEN 19 mg/dL (9-20); CARBON DIOXIDE 22 mmol/L (22-30); GFR AFRICAN-AMERICAN > 60; GLUCOSE,RANDOM 75 mg/dL (75-110); TOTAL PROTEIN 6.7 g/dL (6.3-8.3)
[2016-12-19 07:58] LABS: CALCIUM 7.7 mg/dl (8.6-10.4); MAGNESIUM 1.1 mg/dL (1.6-2.3); PHOSPHOROUS 3.5 mg/dL (2.5-4.5)
[2016-12-19 08:21] LABS: EOSINOPHIL 1 % (0-4); NEUTROPHIL 48 % (50-75); TOTAL CELLS COUNTED 100
[2016-12-19 08:46] LABS: FOLATE 12.5 ng/mL
[2016-12-19] MEDS: Enoxaparin 40 mg Syringe SC SCH (09:06)
[2016-12-19] MEDS: Magnesium Sulfate 1 gm in D5W 1 GM/100 ML BAG IVPB SCH ×2 (09:06→12:38)
[2016-12-19] MEDS ORDERED: Influenza Vaccine 60 mcg/0.5 mL SYR (4YR UP) IM ONE (10:00)
[2016-12-19] MEDS: Magnesium Oxide 400 mg Tab UD PO SCH ×2 (12:40→17:45)
[2016-12-19 16:56] VITALS: RESP 20
--- NOTE | 2016-12-20 06:30 | CP.PCM.PN ---
Subjective - Date & Time of Evaluation Date of Evaluation: 12/20/16 Time of Evaluation: 07:00 - Subjective Subjective: Medicine Note for Dr. Colvin Patient was seen and examined at bedside. No acute complaints. He would like to go home once he is discharge. He is not interested in detox. Denied fever, chills, headache, chest pain, SOB, abdominal pain, n/v/d/c, or urinary symptoms. Objective - Vital Signs/Intake and Output Vital Signs (last 24 hours): Temp Pulse Resp BP Pulse Ox 98.1 F 86 20 165/87 H 97 12/19/16 22:13 12/19/16 22:13 12/19/16 22:13 12/19/16 22:13 12/19/16 22:13 - Medications Medications: Current Medications Chlordiazepoxide (Librium) 25 mg PO Q12H [facility] PRN Reason: Taper Stop: 12/22/16 05:59 Last Admin: 12/19/16 21:20 Dose: 25 mg Clonidine HCl (Catapres) 0.1 mg PO BID PRN PRN Reason: Systolic Blood Pressure Enoxaparin Sodium (Lovenox) 40 mg SC DAILY [facility] Last Admin: 12/19/16 09:06 Dose: 40 mg Famotidine (Pepcid) 20 mg PO DAILY [facility] Last Admin: 12/19/16 09:05 Dose: 20 mg Folic Acid (Folic Acid) 1 mg PO DAILY [facility] Last Admin: 12/19/16 09:06 Dose: 1 mg Levetiracetam (Keppra) 1,000 mg PO BID [facility] Last Admin: 12/19/16 17:45 Dose: 1,000 mg Lorazepam (Ativan) 1 mg PO TID PRN PRN Reason: Seizure activity Magnesium Oxide (Mag-Ox) 400 mg PO BID [facility] Stop: 12/20/16 10:46 Last Admin: 12/19/16 17:45 Dose: 400 mg Pneumococcal Polyvalent Vaccine (Pneumovax 23 Vaccine) 0.5 ml IM .ONCE ONE Stop: 12/20/16 14:01 Thiamine HCl (Vitamin B1 Tab) 100 mg PO DAILY [facility] Last Admin: 12/19/16 09:06 Dose: 100 mg - Labs Labs: 12/19/16 07:23 12/19/16 07:23 PT 12.1 SECONDS (9.7-12.2) 12/17/16 23:49 INR 1.1 12/17/16 23:49 APTT 30 SECONDS (21-34) 12/17/16 23:49 - Additional Findings Additional findings: - Constitutional Appears: Unkempt, Agitated - Head Exam Head Exam: ATRAUMATIC, NORMAL INSPECTION - Eye Exam Eye Exam: EOMI Pupil Exam: Miosis - ENT Exam ENT Exam: Mucous Membranes Moist - Respiratory Exam Respiratory Exam: Clear to Auscultation Bilateral, NORMAL BREATHING PATTERN. absent: Rhonchi, Wheezes, Respiratory Distress - Cardiovascular Exam Cardiovascular Exam: REGULAR RHYTHM, +S1, +S2. absent: Bradycardia, Tachycardia - GI/Abdominal Exam GI & Abdominal Exam: Normal Bowel Sounds, Soft. absent: Distended, Firm, Guarding, Tenderness - Extremities Exam Extremities exam: Positive for: normal inspection, pedal pulses present. Negative for: pedal edema, tenderness - Neurological Exam Neurological exam: Alert - Psychiatric Exam Psychiatric exam: Agitated - Skin Skin Exam: Dry, Normal Color, Warm Additional comments: Hx of laceration on lower mid back- 9 sutures (as per nursing); dressing clean, dry, intact Assessment and Plan - Assessment and Plan (Free Text) Plan: Alcohol abuse with intoxication [facility] Protocol Librium Taper will be completed on 12/22/16 PO multivitamin, folic acid, thiamine Alcohol toxicology: 222 UDS: positive for cannabinoids, barbituates Ativan 2mg IVP PRN Anemia Hgb 8.3 (decreased from 11.3 11/08/16) Stool occult negative Type & Screen if continuing to downtrend, will transfuse Monitor H/H Iron, ferritin, %saturation TIBC, Retic count- 2.7, folate, vitamin b12 - WNL S/P EGD with ligation Patient reports 2 weeks ago, at [facility] he underwent and EGD, which required him to have a few clips placed in Denied any UGI, LGI, hemetemasis, melena, bloody stool Monitor H/H Seizure disorder Aspiration, Fall, and Seizure precautions Keppra 1000mg PO BID Prophylactic measure GI PPX: Pepcid 20mg PO daily DVT PPX: SCDs, lovenox Heart healthy diet 02 via nasal cannula as needed Disposition: Patient will be discharged home, after completing Librium Taper on 12/22/16. DW Dr. Shaan Colvin DO, PGY-1
[2016-12-20 06:44] LABS: BASO # 0.1 K/uL (0.0-0.2); BASO % 1.6 % (0.0-2.0); EOS # 0.5 K/uL (0.0-0.7); EOS % 5.1 % (0.0-4.0); HEMATOCRIT 29.2 % (35.0-51.0); LYMPH # 1.8 K/uL (1.0-4.3); LYMPH % 19.2 % (20.0-40.0); MEAN CORPUSCULAR HEMOGLOBIN 30.4 pg (27.0-31.0); MEAN CORPUSCULAR HGB CONC 31.7 g/dL (33.0-37.0); MEAN PLATELET VOLUME 10.8 fL (7.2-11.7); MONO # 1.6 K/uL (0.0-0.8); MONO % 17.5 % (0.0-10.0); NRBC % 0.3 % (0.0-2.0); RED CELL DISTRIBUTION WIDTH 15.7 % (11.5-14.5); WHITE BLOOD COUNT 9.3 K/uL (4.8-10.8)
[2016-12-20 06:46] LABS: MEAN CELL VOLUME 95.9 fL (80.0-94.0)
[2016-12-20 07:18] LABS: CHLORIDE 103 mmol/L (98-107); POTASSIUM 5.2 mmol/L (3.6-5.2); SODIUM 131 mmol/L (132-148)
[2016-12-20 07:20] LABS: BILIRUBIN,TOTAL 0.7 mg/dL (0.2-1.3); GFR AFRICAN-AMERICAN > 60
[2016-12-20 07:21] LABS: ALB/GLOB RATIO 0.8 (1.0-2.1); ALKALINE PHOSPHATASE 218 U/L (38-126); ALT/SGPT 28 U/L (21-72); AST/SGOT 49 U/L (17-59); BLOOD UREA NITROGEN 21 mg/dL (9-20); CARBON DIOXIDE 20 mmol/L (22-30); GLUCOSE,RANDOM 72 mg/dL (75-110); PHOSPHOROUS 3.5 mg/dL (2.5-4.5); TOTAL PROTEIN 6.9 g/dL (6.3-8.3)
[2016-12-20 07:22] LABS: CALCIUM 7.8 mg/dl (8.6-10.4); MAGNESIUM 1.2 mg/dL (1.6-2.3)
[2016-12-20 08:15] VITALS: BP 150/86; PULSE 84; TEMP 98; O2SAT 96
[2016-12-20] MEDS: Enoxaparin 40 mg Syringe SC SCH (09:59)
[2016-12-20] MEDS: Magnesium Oxide 400 mg Tab UD PO SCH (10:00)
--- NOTE | 2016-12-20 10:05 | CP.PCM.DIS ---
<Kajal Garduno - Last Filed: 12/20/16 10:03> Provider - Provider Date of Admission: 12/19/16 12:51 Attending physician: Niraj Mccabe MD Time Spent in preparation of Discharge (in minutes): 55 Hospital Course - Lab Results Lab Results: Most Recent Lab Values WBC 9.3 K/uL (4.8-10.8) 12/20/16 06:29 RBC 3.04 Mil/uL (4.40-5.90) L 12/20/16 06:29 Hgb 9.3 g/dL (12.0-18.0) L 12/20/16 06:29 Hct 29.2 % (35.0-51.0) L 12/20/16 06:29 MCV 95.9 fL (80.0-94.0) H D 12/20/16 06:29 MCH 30.4 pg (27.0-31.0) 12/20/16 06:29 MCHC 31.7 g/dL (33.0-37.0) L 12/20/16 06:29 RDW 15.7 % (11.5-14.5) H 12/20/16 06:29 Plt Count 250 K/uL (130-400) D 12/20/16 06:29 MPV 10.8 fL (7.2-11.7) 12/20/16 06:29 Neut % (Auto) 56.6 % (50.0-75.0) 12/20/16 06:29 Lymph % (Auto) 19.2 % (20.0-40.0) L 12/20/16 06:29 [place] % (Auto) 17.5 % (0.0-10.0) H 12/20/16 06:29 Eos % (Auto) 5.1 % (0.0-4.0) H 12/20/16 06:29 Baso % (Auto) 1.6 % (0.0-2.0) 12/20/16 06:29 Neut # 5.3 K/uL (1.8-7.0) 12/20/16 06:29 Lymph # 1.8 K/uL (1.0-4.3) 12/20/16 06:29 [place] # 1.6 K/uL (0.0-0.8) H 10/18/17 06:29 Eos # 0.5 K/uL (0.0-0.7) 12/20/16 06:29 Baso # 0.1 K/uL (0.0-0.2) 12/20/16 06:29 Neutrophils % (Manual) 48 % (50-75) L 12/19/16 07:23 Lymphocytes % (Manual) 35 % (20-40) 12/19/16 07:23 Monocytes % (Manual) 16 % (0-10) H 12/19/16 07:23 Eosinophils % (Manual) 1 % (0-4) 12/19/16 07:23 Basophils % (Manual) 2 % (0-2) 12/17/16 22:30 Platelet Estimate Normal (NORMAL) 12/19/16 07:23 Polychromasia Slight 12/19/16 07:23 Hypochromasia (manual) Slight 12/19/16 07:23 Poikilocytosis (manual Slight 12/17/16 22:30 Anisocytosis (manual) Slight 12/19/16 07:23 Target Cells Slight 12/19/16 07:23 Retic Count 2.7 % (0.5-1.5) H 12/19/16 07:23 PT 12.1 SECONDS (9.7-12.2) 12/17/16 23:49 INR 1.1 12/17/16 23:49 APTT 30 SECONDS (21-34) 12/17/16 23:49 Sodium 131 mmol/L (132-148) L 12/20/16 06:29 Potassium 5.2 mmol/L (3.6-5.2) 12/20/16 06:29 Chloride 103 mmol/L (98-107) 12/20/16 06:29 Carbon Dioxide 20 mmol/L (22-30) L 12/20/16 06:29 Anion Gap 13 (10-20) 12/20/16 06:29 BUN 21 mg/dL (9-20) H 12/20/16 06:29 Creatinine 0.8 mg/dL (0.8-1.5) 12/20/16 06:29 Est GFR ( Amer) > 60 12/20/16 06:29 Est GFR (Non-Af Amer) > 60 12/20/16 06:29 Random Glucose 72 mg/dL (75-110) L 12/20/16 06:29 Calcium 7.8 mg/dl (8.6-10.4) L 12/20/16 06:29 Phosphorus 3.5 mg/dL (2.5-4.5) 12/20/16 06:29 Magnesium 1.2 mg/dL (1.6-2.3) L 12/20/16 06:29 Iron 71 ug/dL (49-181) 12/19/16 07:23 TIBC 316 ug/dL (250-450) 12/19/16 07:23 % Saturation 23 (20-55) 12/19/16 07:23 Ferritin 108.0 ng/mL 12/19/16 07:23 Total Bilirubin 0.7 mg/dL (0.2-1.3) 12/20/16 06:29 AST 49 U/L (17-59) 12/20/16 06:29 ALT 28 U/L (21-72) 12/20/16 06:29 Alkaline Phosphatase 218 U/L (38-126) H 12/20/16 06:29 Total Protein 6.9 g/dL (6.3-8.3) 12/20/16 06:29 Albumin 3.1 g/dL (3.5-5.0) L 12/20/16 06:29 Globulin 3.8 gm/dL (2.2-3.9) 12/20/16 06:29 Albumin/Globulin Ratio 0.8 (1.0-2.1) L 12/20/16 06:29 Vitamin B12 701 pg/mL (239-931) 12/19/16 07:23 Folate 12.5 ng/mL 12/19/16 07:23 Urine Color Yellow (YELLOW) 12/17/16 22:30 Urine Clarity Clear (Clear) 12/17/16 22:30 Urine pH 5.0 (5.0-8.0) 12/17/16 22:30 Ur Specific [place] 1.013 (1.003-1.030) 12/17/16 22:30 Urine Protein Negative mg/dL (NEGATIVE) 12/17/16 22:30 Urine Glucose (UA) Normal mg/dL (Normal) 12/17/16 22:30 Urine Ketones Negative mg/dL (NEGATIVE) 12/17/16 22:30 Urine Blood Negative (NEGATIVE) 12/17/16 22:30 Urine Nitrate Negative (NEGATIVE) 12/17/16 22:30 Urine Bilirubin Negative (NEGATIVE) 12/17/16 22:30 Urine Urobilinogen Normal mg/dL (0.2-1.0) 12/17/16 22:30 Ur Leukocyte Esterase Neg Joanie/uL (Negative) 12/17/16 22:30 Urine WBC (Auto) 3 /hpf (0-5) 12/17/16 22:30 Urine RBC (Auto) 2 /hpf (0-3) 12/17/16 22:30 Hyaline Casts >20 /lpf (0-2) H 12/17/16 22:30 Stool Occult Blood Negative (NEGATIVE) 12/17/16 23:17 Urine Opiates Screen Negative (NEGATIVE) 12/17/16 22:30 Urine Methadone Screen Negative (NEGATIVE) 12/17/16 22:30 Ur Barbiturates Screen Positive (NEGATIVE) 12/17/16 22:30 Ur Phencyclidine Scrn Negative (NEGATIVE) 12/17/16 22:30 Ur Amphetamines Screen Negative (NEGATIVE) 12/17/16 22:30 U Benzodiazepines Scrn Negative (NEGATIVE) 12/17/16 22:30 U Oth Cocaine Metabols Negative (NEGATIVE) 12/17/16 22:30 U Cannabinoids Screen Positive (NEGATIVE) 12/17/16 22:30 Alcohol, Quantitative 222 mg/dl (0-10) H 12/17/16 22:30 Blood Type O POSITIVE 12/17/16 23:47 Antibody Screen Negative 12/17/16 23:47 - Hospital Course Hospital Course: Upon Admission: Patient is a 51 year old male with a past medical history of hypertension, alcohol abuse, and seizures, who presents to the ED brought in by EMS for public intoxication. In the ED, patient was found to have a hemoglobin of 8.3 ( decreased from 11.3 at last ER visit on 11/08/16). Patient is uncooperative and agitated. Patient reports he does not drink or use drugs, he does not answer or respond to review of systems. As per nursing, patient reports using alcohol but does not reports when he last used. Patient's history is limited and is obtained from previous EMR notes due to patients condition. PMD: Dr. Mahin Huerta PMHx: hypertension, alcohol abuse, and seizures SocHx: alcohol abuse Allergies: aspirin, ibuprofen Medications: See EMR Throughout Hospital Course: Patient was admitted for alcohol intoxication and detox. Patient was walked around, he ambulated well, no SOB, chest pain, or unsteady gait. Alcohol abuse with intoxication [facility] Protocol Librium Taper PO multivitamin, folic acid, thiamine Alcohol toxicology: 222 UDS: positive for cannabinoids, barbituates Ativan 2mg IVP PRN Patient was seen by psych- but he refused detox Anemia Hgb 8.3 (decreased from 11.3 11/08/16) Stool occult negative Type & Screen if continuing to downtrend, will transfuse Monitor H/H Iron, ferritin, %saturation TIBC, Retic count- 2.7, folate, vitamin b12 - WNL S/P EGD with ligation Patient reports 2 weeks ago, at [facility] he underwent and EGD, which required him to have a few clips placed in Denied any UGI, LGI, hemetemasis, melena, bloody stool Monitor H/H Seizure disorder Aspiration, Fall, and Seizure precautions Keppra 1000mg PO BID Prophylactic measure GI PPX: Pepcid 20mg PO daily DVT PPX: SCDs, lovenox Heart healthy diet 02 via nasal cannula as needed This is a brief summary of the patient's hospital course. Please review EMR for full record. Discharge Exam - Additional Findings Additional findings: - Constitutional Appears: Unkempt, Agitated - Head Exam Head Exam: ATRAUMATIC, NORMAL INSPECTION - Eye Exam Eye Exam: EOMI Pupil Exam: Miosis - ENT Exam ENT Exam: Mucous Membranes Moist - Respiratory Exam Respiratory Exam: Clear to Auscultation Bilateral, NORMAL BREATHING PATTERN. absent: Rhonchi, Wheezes, Respiratory Distress - Cardiovascular Exam Cardiovascular Exam: REGULAR RHYTHM, +S1, +S2. absent: Bradycardia, Tachycardia - GI/Abdominal Exam GI & Abdominal Exam: Normal Bowel Sounds, Soft. absent: Distended, Firm, Guarding, Tenderness - Extremities Exam Extremities exam: Positive for: normal inspection, pedal pulses present. Negative for: pedal edema, tenderness - Neurological Exam Neurological exam: Alert - Psychiatric Exam Psychiatric exam: Agitated - Skin Skin Exam: Dry, Normal Color, Warm Additional comments: Hx of laceration on lower mid back- 9 sutures (as per nursing); blood tinged dressing Discharge Plan - Discharge Medications Prescriptions: Folic Acid 1 mg PO DAILY #30 tab Levetiracetam [Keppra] 1,000 mg PO BID #120 tablet Thiamine [Vitamin B1 Tab] 100 mg PO DAILY #30 tab - Follow Up Plan Condition: STABLE Disposition: HOME/ ROUTINE Instructions: Thiamine (Vitamin B-1) (By mouth), Folic Acid (By mouth), Levetiracetam (By mouth), Heart Healthy Diet (DC), Alcohol Intoxication (DC), Abuse of Alcohol (DC), Anemia (DC) Additional Instructions: Patient is to follow up with [facility] for removal of the lo on his lower back. Patient was encouraged to refrain from alcohol use. And if he agreed to go to detox. Please return to the ED if your symptoms worsen or return. Referrals: Alcoholics Anonymous [Outside] <Arley Colvin - Last Filed: 12/20/16 13:20> Provider - Provider Date of Admission: 12/19/16 12:51 Attending physician: Niraj Mccabe MD Hospital Course - Lab Results Lab Results: Most Recent Lab Values WBC 9.3 K/uL (4.8-10.8) 12/20/16 06:29 RBC 3.04 Mil/uL (4.40-5.90) L 12/20/16 06:29 Hgb 9.3 g/dL (12.0-18.0) L 12/20/16 06:29 Hct 29.2 % (35.0-51.0) L 12/20/16 06:29 MCV 95.9 fL (80.0-94.0) H D 12/20/16 06:29 MCH 30.4 pg (27.0-31.0) 12/20/16 06:29 MCHC 31.7 g/dL (33.0-37.0) L 12/20/16 06:29 RDW 15.7 % (11.5-14.5) H 12/20/16 06:29 Plt Count 250 K/uL (130-400) D 12/20/16 06:29 MPV 10.8 fL (7.2-11.7) 12/20/16 06:29 Neut % (Auto) 56.6 % (50.0-75.0) 12/20/16 06:29 Lymph % (Auto) 19.2 % (20.0-40.0) L 12/20/16 06:29 [place] % (Auto) 17.5 % (0.0-10.0) H 12/20/16 06:29 Eos % (Auto) 5.1 % (0.0-4.0) H 12/20/16 06:29 Baso % (Auto) 1.6 % (0.0-2.0) 12/20/16 06:29 Neut # 5.3 K/uL (1.8-7.0) 12/20/16 06:29 Lymph # 1.8 K/uL (1.0-4.3) 12/20/16 06:29 [place] # 1.6 K/uL (0.0-0.8) H 12/20/16 06:29 Eos # 0.5 K/uL (0.0-0.7) 12/20/16 06:29 Baso # 0.1 K/uL (0.0-0.2) 12/20/16 06:29 Neutrophils % (Manual) 48 % (50-75) L 12/19/16 07:23 Lymphocytes % (Manual) 35 % (20-40) 12/19/16 07:23 Monocytes % (Manual) 16 % (0-10) H 12/19/16 07:23 Eosinophils % (Manual) 1 % (0-4) 12/19/16 07:23 Basophils % (Manual) 2 % (0-2) 12/17/16 22:30 Platelet Estimate Normal (NORMAL) 12/19/16 07:23 Polychromasia Slight 12/19/16 07:23 Hypochromasia (manual) Slight 12/19/16 07:23 Poikilocytosis (manual Slight 12/17/16 22:30 Anisocytosis (manual) Slight 12/19/16 07:23 Target Cells Slight 12/19/16 07:23 Retic Count 2.7 % (0.5-1.5) H 12/19/16 07:23 PT 12.1 SECONDS (9.7-12.2) 12/17/16 23:49 INR 1.1 12/17/16 23:49 APTT 30 SECONDS (21-34) 12/17/16 23:49 Sodium 131 mmol/L (132-148) L 12/20/16 06:29 Potassium 5.2 mmol/L (3.6-5.2) 12/20/16 06:29 Chloride 103 mmol/L (98-107) 12/20/16 06:29 Carbon Dioxide 20 mmol/L (22-30) L 12/20/16 06:29 Anion Gap 13 (10-20) 12/20/16 06:29 BUN 21 mg/dL (9-20) H 12/20/16 06:29 Creatinine 0.8 mg/dL (0.8-1.5) 12/20/16 06:29 Est GFR ( Amer) > 60 12/20/16 06:29 Est GFR (Non-Af Amer) > 60 12/20/16 06:29 Random Glucose 72 mg/dL (75-110) L 12/20/16 06:29 Calcium 7.8 mg/dl (8.6-10.4) L 12/20/16 06:29 Phosphorus 3.5 mg/dL (2.5-4.5) 12/20/16 06:29 Magnesium 1.2 mg/dL (1.6-2.3) L 12/20/16 06:29 Iron 71 ug/dL (49-181) 12/19/16 07:23 TIBC 316 ug/dL (250-450) 12/19/16 07:23 % Saturation 23 (20-55) 12/19/16 07:23 Ferritin 108.0 ng/mL 12/19/16 07:23 Total Bilirubin 0.7 mg/dL (0.2-1.3) 12/20/16 06:29 AST 49 U/L (17-59) 12/20/16 06:29 ALT 28 U/L (21-72) 12/20/16 06:29 Alkaline Phosphatase 218 U/L (38-126) H 12/20/16 06:29 Total Protein 6.9 g/dL (6.3-8.3) 12/20/16 06:29 Albumin 3.1 g/dL (3.5-5.0) L 12/20/16 06:29 Globulin 3.8 gm/dL (2.2-3.9) 12/20/16 06:29 Albumin/Globulin Ratio 0.8 (1.0-2.1) L 12/20/16 06:29 Vitamin B12 701 pg/mL (239-931) 12/19/16 07:23 Folate 12.5 ng/mL 12/19/16 07:23 Urine Color Yellow (YELLOW) 12/17/16 22:30 Urine Clarity Clear (Clear) 12/17/16 22:30 Urine pH 5.0 (5.0-8.0) 12/17/16 22:30 Ur Specific [place] 1.013 (1.003-1.030) 12/17/16 22:30 Urine Protein Negative mg/dL (NEGATIVE) 12/17/16 22:30 Urine Glucose (UA) Normal mg/dL (Normal) 12/17/16 22:30 Urine Ketones Negative mg/dL (NEGATIVE) 12/17/16 22:30 Urine Blood Negative (NEGATIVE) 12/17/16 22:30 Urine Nitrate Negative (NEGATIVE) 12/17/16 22:30 Urine Bilirubin Negative (NEGATIVE) 12/17/16 22:30 Urine Urobilinogen Normal mg/dL (0.2-1.0) 12/17/16 22:30 Ur Leukocyte Esterase Neg Joanie/uL (Negative) 12/17/16 22:30 Urine WBC (Auto) 3 /hpf (0-5) 12/17/16 22:30 Urine RBC (Auto) 2 /hpf (0-3) 12/17/16 22:30 Hyaline Casts >20 /lpf (0-2) H 12/17/16 22:30 Stool Occult Blood Negative (NEGATIVE) 12/17/16 23:17 Urine Opiates Screen Negative (NEGATIVE) 12/17/16 22:30 Urine Methadone Screen Negative (NEGATIVE) 12/17/16 22:30 Ur Barbiturates Screen Positive (NEGATIVE) 12/17/16 22:30 Ur Phencyclidine Scrn Negative (NEGATIVE) 12/17/16 22:30 Ur Amphetamines Screen Negative (NEGATIVE) 12/17/16 22:30 U Benzodiazepines Scrn Negative (NEGATIVE) 12/17/16 22:30 U Oth Cocaine Metabols Negative (NEGATIVE) 12/17/16 22:30 U Cannabinoids Screen Positive (NEGATIVE) 12/17/16 22:30 Alcohol, Quantitative 222 mg/dl (0-10) H 12/17/16 22:30 Blood Type O POSITIVE 12/17/16 23:47 Antibody Screen Negative 12/17/16 23:47 Attending/Attestation - Attestation I have personally seen and examined this patient.: Yes I have fully participated in the care of the patient.: Yes I have reviewed all pertinent clinical information, including history, physical exam and plan: Yes Notes (Text): 12/20/16 13:20 Medical attending: Patient was seen and examined by me, agrees the above note by medical aide. On exam the patient reported that he was not having any shaking or tremors. He denied having abdominal pain, denied having headaches, reported eating well. Also on exam we had him walk around with us, he was able to do so without any assistance. The patient reports that he's can avoid alcohol from now on. Truth be told for the record judging by the way he's been talking to the medical residents as well as medical staff I have my doubts. Nevertheless I emphasized to him that it 's very important that he do status since the alcohol could cause his history of seizures to worsen. Furthermore I pointed out to him that he's recently had complications due to the alcohol as well - I don't know how effective this discussion was nevertheless we did have it. He does not want to go to detox Thank you very much, Arley Colvin
[2016-12-20] MEDS ORDERED: Pneumococcal 23-Valent Vaccine IM ONE (14:00)
== END 2016-12-20 13:12 | disposition home or self-care (01) | DRG 897 ==
LOC: C.ER 17:31 → C.5S 23:44 → OBSVTOIN 12-19 12:51 → C.6T 12-19 13:39
PROVIDERS: ADMIT Family Medicine; ATTEND Family Medicine
DX: F10.220 Alcohol dependence with intoxication, uncomplicated (principal); F10.230 Alcohol dependence with withdrawal, uncomplicated; R64 Cachexia; F31.9 Bipolar disorder, unspecified; I10 Essential (primary) hypertension; D64.9 Anemia, unspecified; Y90.7 Blood alcohol level of 200-239 mg/100 ml; G40.909 Epilepsy, unspecified, not intractable, without status epilepticus; Z90.81 Acquired absence of spleen

== ENCOUNTER 2017-01-12 13:43 | Emergency (ER) | payer MEDICARE, MEDICAID ==
[2017-01-12 13:58] VITALS: RESP 18
--- NOTE | 2017-01-12 14:26 | C.PDOC ---
History Of Present Illness 51 y/o female presents to emergency department with complaint of possible seizure. Patient reports seizure disorder for 25 years. Pt takes Keppra and Barbitol. Pt states his pattern of seizures is unpredictable; unable to say how often he gets them. Patient reports that prior to arrival, he woke up on the floor and felt as if he had a seizure. Patient also admits to alcohol abuse: drinks 6 pack of 16 oz beers daily, but that he has been cutting back recently. Patient notes he is scheduled to go to detox in [place]. No complaints at this time. Time Seen by Provider: 01/12/17 13:51 Chief Complaint (Nursing): Substance Abuse History Per: Patient History/Exam Limitations: no limitations Onset/Duration Of Symptoms: Persistent Current Symptoms Are (Timing): Still Present Modifying Factor(s): Alcohol Associated Symptoms: denies: Suicidal Thoughts, Suicidal Plan Recent travel outside of the [place]: No Past Medical History Reviewed: Historical Data, Nursing Documentation, Vital Signs Vital Signs: Last Vital Signs Temp 98.5 F 01/12/17 13:54 Pulse 107 H 01/12/17 13:54 Resp 18 01/12/17 13:54 BP 108/68 01/12/17 13:54 Pulse Ox 96 01/12/17 14:27 - Medical History PMH: Bipolar Disorder, Gastritis, HTN, Seizures Surgical History: Hernia Repair (b/l inguinal) - [facility] Procedures CONTRAST AORTOGRAM (09/15/14) CONTRAST ARTERIOGRAM-LEG (09/15/14) IMMOBILIZATION OF LEFT LOWER EXTREMITY USING OTHER DEVICE (12/05/14) INJECT/INFUSE NEC (07/01/14) OP RED-INT FIX TIB/FIBUL (09/15/14) PACKED CELL TRANSFUSION (09/15/14) VACCINATION NEC (09/15/14) Family History: States: Unknown Family Hx - Social History Hx Tobacco Use: Yes Hx Alcohol Use: Yes Hx Substance Use: No - Immunization History Hx Tetanus Toxoid Vaccination: No Hx Influenza Vaccination: No Hx Pneumococcal Vaccination: No Review Of Systems Except As Marked, All Systems Reviewed And Found Negative. Constitutional: Negative for: Fever, Chills Cardiovascular: Negative for: Chest Pain Respiratory: Negative for: Cough, Shortness of Breath, Wheezing Gastrointestinal: Negative for: Vomiting Skin: Negative for: Rash Neurological: Positive for: Seizures. Negative for: Weakness, Numbness Physical Exam - Physical Exam Appears: Non-toxic, No Acute Distress Skin: Normal Color, Warm, Dry Head: Atraumatic, Normacephalic Eye(s): bilateral: Normal Inspection, PERRL, EOMI Oral Mucosa: Moist Neck: Normal ROM, No Paracervical Tenderness, Supple Chest: Symmetrical Cardiovascular: Rhythm Regular Respiratory: Normal Breath Sounds, No Rales, No Rhonchi, No Wheezing Gastrointestinal/Abdominal: Soft, No Tenderness, No Guarding, No Rebound Back: Normal Inspection Extremity: Normal ROM, Capillary Refill (< 2 sec. ) Neurological/Psych: Oriented x3, Normal Speech, Normal Cognition, Normal Cranial Nerves, Cerebellar Signs, Normal Motor, Normal Sensation ED Course And Treatment O2 Sat by Pulse Oximetry: 96 (RA) Pulse Ox Interpretation: Normal Medical Decision Making Medical Decision Making: the pt is pleasant, appears well, no distress, a&ox3. agrees w plan for dc. Disposition - Disposition Disposition: HOME/ ROUTINE Disposition Time: 14:35 Condition: STABLE Forms: [facility] (Sami) - Clinical Impression Clinical Impression: Breakthrough seizure - Scribe Statement The provider has reviewed the documentation as recorded by the Scribe González Gerardo All medical record entries made by the Scribe were at my direction and personally dictated by me. I have reviewed the chart and agree that the record accurately reflects my personal performance of the history, physical exam, medical decision making, and the department course for this patient. I have also personally directed, reviewed, and agree with the discharge instructions and disposition.
[2017-01-12 15:22] VITALS: BP 113/66; PULSE 101; TEMP 97.7; O2SAT 95
== END 2017-01-12 15:23 | disposition home or self-care (01) ==
LOC: C.ER 13:43
DX: G40.909 Epilepsy, unspecified, not intractable, without status epilepticus (principal)

== ENCOUNTER 2017-01-15 16:16 | Emergency (ER) | payer MEDICARE, MEDICAID ==
[2017-01-15 16:34] VITALS: RESP 18
[2017-01-15] MEDS ORDERED: Lactated Ringer's 1,000 ML IV STA (17:31)
--- NOTE | 2017-01-15 18:02 | RAD ---
HISTORY: Body aches COMPARISON: Chest x-ray performed 05/03/12 TECHNIQUE: Chest PA and lateral FINDINGS: Examination limited by habitus. LUNGS: Biapical pleural thickening. Right peritracheal opacity of unclear significance. Please note that chest x-ray has limited sensitivity for the detection of pulmonary masses. PLEURA: No significant pleural effusion identified. No definite pneumothorax . CARDIOVASCULAR: Cardiomegaly. OSSEOUS STRUCTURES: Osseous demineralization. Degenerative changes. Kyphosis. Loss of vertebral body height with loss of height involving a mid thoracic vertebral spine level consistent with compression fracture. Deformity of the distal right clavicle. VISUALIZED UPPER ABDOMEN: Unremarkable. OTHER FINDINGS: None. IMPRESSION: Right peritracheal opacity of unclear significance. Recommend CT of the chest with IV contrast for further evaluation. Cardiomegaly. Additional findings as above.
[2017-01-15 18:03] LABS: BASO # 0.1 K/uL (0.0-0.2); BASO % 1.6 % (0.0-2.0); EOS # 0.1 K/uL (0.0-0.7); EOS % 1.1 % (0.0-4.0); HEMATOCRIT 31.1 % (35.0-51.0); LYMPH # 2.7 K/uL (1.0-4.3); LYMPH % 29.4 % (20.0-40.0); MEAN CORPUSCULAR HEMOGLOBIN 29.2 pg (27.0-31.0); MEAN CORPUSCULAR HGB CONC 31.9 g/dL (33.0-37.0); MEAN PLATELET VOLUME 11.1 fL (7.2-11.7); MONO # 1.9 K/uL (0.0-0.8); MONO % 20.2 % (0.0-10.0); NRBC % 0.2 % (0.0-2.0); RED CELL DISTRIBUTION WIDTH 16.6 % (11.5-14.5); WHITE BLOOD COUNT 9.3 K/uL (4.8-10.8)
[2017-01-15 18:10] LABS: CHLORIDE 99 mmol/L (98-107)
[2017-01-15 18:11] LABS: SODIUM 134 mmol/L (132-148)
[2017-01-15 18:12] LABS: MEAN CELL VOLUME 91.3 fL (80.0-94.0); PLATELET COUNT 132 K/uL (130-400); POTASSIUM 3.6 mmol/L (3.6-5.2)
[2017-01-15 18:14] LABS: ALKALINE PHOSPHATASE 223 U/L (38-126); ALT/SGPT 50 U/L (21-72); AST/SGOT 138 U/L (17-59); BILIRUBIN,TOTAL 1.7 mg/dL (0.2-1.3); BLOOD UREA NITROGEN 20 mg/dL (9-20); CARBON DIOXIDE 22 mmol/L (22-30); GFR AFRICAN-AMERICAN > 60; GLUCOSE,RANDOM 83 mg/dL (75-110); TOTAL PROTEIN 7.6 g/dL (6.3-8.3)
[2017-01-15 18:15] LABS: CALCIUM 7.9 mg/dl (8.6-10.4)
--- NOTE | 2017-01-15 18:26 | C.PDOC ---
51 year old male with Hx of seizures presents to the ED c/o muscle pain that started while he was seating down in his couch watching TV, he states "feeling weird" so he decided to come into. He denies any other physical problems at the time. (Desire Medina) History Per: Patient History/Exam Limitations: no limitations Onset/Duration Of Symptoms: Hrs Current Symptoms Are (Timing): Gone Recent travel outside of the [place]: No Additional History Per: Patient <Desire Medina - Last Filed: 01/15/17 18:54> <Shay Lopes - Last Filed: 01/15/17 22:49> Time Seen by Provider: 01/15/17 17:18 Chief Complaint (Nursing): Medical Clearance Past Medical History Reviewed: Historical Data, Nursing Documentation, Vital Signs - Medical History PMH: Bipolar Disorder, Gastritis, HTN, Seizures Surgical History: Hernia Repair (b/l inguinal) Family History: States: Unknown Family Hx - Social History Hx Tobacco Use: Yes Hx Alcohol Use: Yes Hx Substance Use: No - Immunization History Hx Tetanus Toxoid Vaccination: No Hx Influenza Vaccination: No Hx Pneumococcal Vaccination: No <Desire Medina - Last Filed: 01/15/17 18:54> Vital Signs: Last Vital Signs Temp 97.6 F 01/15/17 19:32 Pulse 88 01/15/17 19:32 Resp 18 01/15/17 19:32 BP 149/76 01/15/17 19:32 Pulse Ox 95 01/15/17 19:32 - [facility] Procedures CONTRAST AORTOGRAM (09/15/14) CONTRAST ARTERIOGRAM-LEG (09/15/14) IMMOBILIZATION OF LEFT LOWER EXTREMITY USING OTHER DEVICE (12/05/14) INJECT/INFUSE NEC (07/01/14) OP RED-INT FIX TIB/FIBUL (09/15/14) PACKED CELL TRANSFUSION (09/15/14) VACCINATION NEC (09/15/14) Review Of Systems Constitutional: Negative for: Fever, Chills Cardiovascular: Negative for: Chest Pain, Palpitations Respiratory: Negative for: Cough, Shortness of Breath Gastrointestinal: Negative for: Nausea, Vomiting, Abdominal Pain Neurological: Negative for: Weakness, Numbness <Desire Medina - Last Filed: 01/15/17 18:54> Physical Exam - Physical Exam Appears: Non-toxic, No Acute Distress Skin: Normal Color, Warm, Dry Head: Atraumatic, Normacephalic Nose: No Discharge Oral Mucosa: Moist Neck: Normal ROM, Supple Chest: Symmetrical Cardiovascular: Rhythm Regular, No Murmur Respiratory: Normal Breath Sounds, No Accessory Muscle Use, No Rales, No Rhonchi , No Wheezing Gastrointestinal/Abdominal: Soft, No Tenderness Extremity: Normal ROM, No Pedal Edema, No Calf Tenderness, No Swelling Neurological/Psych: Oriented x3, Normal Speech, Normal Cognition Gait: Steady <CarolDesire - Last Filed: 01/15/17 18:54> ED Course And Treatment - Laboratory Results Result Diagrams: 01/15/17 18:00 01/15/17 18:00 O2 Sat by Pulse Oximetry: 97 - Radiology CXR: Interpreted by Me, Viewed By Me CXR Interpretation: Yes: Cardiomegaly, Other (Right peritracheal opacity of unclear significance) - Other Rad CXR X-Ray: Viewed By Me, Read By Radiologist Interpretation: Accession No. : [id number]. Patient Name / ID : MELISSA Lamb / [id number]. Exam Date : 01/15/2017 17:36:11 ( Approved ). Study Comment : Sex / Age : M / 51Y. Creator : Adriana Huitron MD. Dictator : Adriana Huitron MD. Laboratory Animal Facility Supervisor : Dental Director : Adriana Huitron MD. Approver2 : Report Date : 01/15/2017 18:00:49. My Comment : . HISTORY: Body aches. COMPARISON: Chest x-ray performed 05/03/12. TECHNIQUE: Chest PA and lateral. FINDINGS: Examination limited by habitus. LUNGS: Biapical pleural thickening. Right peritracheal opacity of unclear significance. Please note that chest x-ray has limited sensitivity for the detection of pulmonary masses. PLEURA: No significant pleural effusion identified. No definite pneumothorax . CARDIOVASCULAR: Cardiomegaly. OSSEOUS STRUCTURES: Osseous demineralization. Degenerative changes. Kyphosis. Loss of vertebral body height with loss of height involving a mid thoracic vertebral spine level consistent with compression fracture. Deformity of the distal right clavicle. VISUALIZED UPPER ABDOMEN: Unremarkable. OTHER FINDINGS: None. IMPRESSION: Right peritracheal opacity of unclear significance. Recommend CT of the chest with IV contrast for further evaluation. Cardiomegaly. Additional findings as above. Progress Note: Plan: -Blood work, CXR, UA ordered. -Lactated 1000 mls/Hr given. CXR results: HISTORY: Body aches. COMPARISON: Chest x-ray performed 05/03/12. TECHNIQUE: Chest PA and lateral. FINDINGS: Examination limited by habitus. LUNGS: Biapical pleural thickening. Right peritracheal opacity of unclear significance. Please note that chest x-ray has limited sensitivity for the detection of pulmonary masses. PLEURA: No significant pleural effusion identified. No definite pneumothorax . CARDIOVASCULAR: Cardiomegaly. OSSEOUS STRUCTURES: Osseous demineralization. Degenerative changes. Kyphosis. Loss of vertebral body height with loss of height involving a mid thoracic vertebral spine level consistent with compression fracture. Deformity of the distal right clavicle. VISUALIZED UPPER ABDOMEN: Unremarkable. OTHER FINDINGS: None. IMPRESSION: Right peritracheal opacity of unclear significance. Recommend CT of the chest with IV contrast for further evaluation. Cardiomegaly. Additional findings as above. CT chest with IV contrast ordered. Case will be signed out to . <Desire Medina - Last Filed: 01/15/17 18:54> - Laboratory Results Result Diagrams: 01/15/17 18:00 01/15/17 18:00 Pulse Ox Interpretation: Normal Reevaluation Time: 22:45 Reassessment Condition: Improved <Shay Lopes - Last Filed: 01/15/17 22:49> Disposition - Disposition Disposition Time: 19:00 <Desire Medina - Last Filed: 01/15/17 18:54> Counseled Patient/Family Regarding: Studies Performed, Diagnosis, Need For Followup <Shay Lopes - Last Filed: 01/15/17 22:49> - Disposition Referrals: Mahin Huerta MD [Staff Provider] - Disposition: HOME/ ROUTINE Condition: FAIR Instructions: Musculoskeletal Pain (ED) Forms: [facility] (Bulgarian) - Clinical Impression Clinical Impression: Generalized muscle ache - PA / DRAGGER / Resident Statement MD/DO has reviewed & agrees with the documentation as recorded. - Scribe Statement The provider has reviewed the documentation as recorded by the Scribe <Desire Medina - Last Filed: 01/15/17 18:54> <Shay Lopes - Last Filed: 01/15/17 22:49> - Scribe Statement Oz Tapia All medical record entries made by the Scribe were at my direction and personally dictated by me. I have reviewed the chart and agree that the record accurately reflects my personal performance of the history, physical exam, medical decision making, and the department course for this patient. I have also personally directed, reviewed, and agree with the discharge instructions and disposition. (Desire Medina) Decision To Admit <Desire Medina - Last Filed: 01/15/17 18:54> <Shay Lopes - Last Filed: 01/15/17 22:49> - . Patient Diagnosis: Generalized muscle ache Physician Patient Turnover Patient Signed Over To: Shay Lopes Handoff Comments: CT chest pening <Desire Medina - Last Filed: 01/15/17 18:54>
[2017-01-15 18:59] LABS: EOSINOPHIL 4 % (0-4); NEUTROPHIL 55 % (50-75); TOTAL CELLS COUNTED 100
[2017-01-15 19:24] LABS: RBC URINE 1 /hpf (0-3); URINE BILIRUBIN NEGATIVE (NEGATIVE); URINE COLOR Yellow (YELLOW); URINE GLUCOSE (UA) NORMAL (Normal); URINE KETONE NEGATIVE (NEGATIVE); URINE LEUKOCYTE ESTERASE NEG Leu/uL (Negative); URINE PROTEIN 2+ mg/dL (NEGATIVE); WBC URINE 1 /hpf (0-5)
[2017-01-15 19:36] LABS: URINE BLOOD TRACE (NEGATIVE)
[2017-01-15] MEDS ORDERED: Iohexol 350mg/ml 100 ML ONE (19:36)
--- NOTE | 2017-01-15 21:56 | CT ---
EXAM: CT Chest With Intravenous Contrast EXAM DATE/TIME: 01/15/2017 6:34 PM CLINICAL HISTORY: 51 years old, male; Signs and symptoms; Other: Abnormal chest; Additional info: Abnormal cxr TECHNIQUE: Axial computed tomography images of the chest with intravenous contrast. All CT scans at this facility use one or more dose reduction techniques, viz.: automated exposure control; ma/kV adjustment per patient size (including targeted exams where dose is matched to indication; i.e. head); or iterative reconstruction technique. Coronal and sagittal reformatted images were created and reviewed. CONTRAST: 100 mL of omnipaque 350 administered intravenously. COMPARISON: Prior images are not available for review. FINDINGS: Artifacts: Motion artifact degrades image quality. Streak artifact from dental fillings degrades image quality. Lungs and pleural spaces: Trachea and main bronchi are patent.There is no pneumothorax. There is no lobar or segmental consolidation. There is dependent atelectasis. There is scarring at the lung bases. There are no effusions. There is a fat density left lower lobe pulmonary nodule, 5.7 mm. Heart and Vasculature: The heart is enlarged. There are coronary artery calcifications. There is no pericardial effusion. There is no aneurysm or dissection. There is perfusion of the 3 arch vessels. Innominate artery is ectatic. Left subclavian artery is mildly tortuous. Main pulmonary arteries normal in caliber. There is prominence of the central right and left pulmonary arteries. There is mild prominence of the azygos vein. Mediastinum: There are no pathologically enlarged mediastinal or hilar nodes. There is a 9 x 9 mm right paratracheal node. Esophagus is unremarkable. There is a small hiatal hernia. Thyroid: Thyroid is unremarkable Bones/joints: Bony structures are osteopenic. There are old right clavicular fractures. There are multiple compression deformities in the thoracic spine. Deformities are greatest T6, T7, T8 and T10. There is less severe deformity T3, and the T9, T12 and L1. There are Schmorl's nodes at multiple levels. Soft tissues: unremarkable Lymph nodes: See above. Upper abdomen: There is fatty infiltration of the liver. There is prominence of the left and caudate lobes. There is a very small spleen in the left upper quadrant. IMPRESSION: No mediastinal mass or adenopathy, vascular ectasia accounts for mediastinal widening reported on chest x-ray; osteopenia with multiple compression deformities Additional findings as described above.
[2017-01-15 23:08] VITALS: BP 166/83; PULSE 77; TEMP 98.4; O2SAT 96
== END 2017-01-15 23:08 | disposition home or self-care (01) ==
LOC: C.ER 16:16
DX: M79.1 Myalgia (principal); I10 Essential (primary) hypertension
CPT/HCPCS: 71020; 71260; 80053; 81001; 82550; 85025; 87804; 96360; 99283; J7120; Q9967

== ENCOUNTER 2017-02-10 14:34 | Emergency (ER) | payer MEDICARE, MEDICAID ==
[2017-02-10] MEDS ORDERED: Lactated Ringer's 1,000 ML IVB STA (15:14)
[2017-02-10 16:34] LABS: ALB/GLOB RATIO 0.8 (1.0-2.1); BILIRUBIN,TOTAL 0.8 mg/dL (0.2-1.3); CALCIUM 7.4 mg/dl (8.6-10.4); MAGNESIUM 1.8 mg/dL (1.6-2.3); TOTAL PROTEIN 8.2 g/dL (6.3-8.3)
[2017-02-10 17:43] VITALS: RESP 16
[2017-02-10 20:02] VITALS: TEMP 98; O2SAT 98
--- NOTE | 2017-02-10 21:20 | C.PDOC ---
History Of Present Illness Pt was BIBEMS due to alcohol intoxication. Time Seen by Provider: 02/10/17 14:48 Chief Complaint (Nursing): Substance Abuse History Per: Patient, EMS History/Exam Limitations: intoxication Onset/Duration Of Symptoms: Unknown Current Symptoms Are (Timing): Still Present Suicide/Self Injury Attempted (Context): None Modifying Factor(s): Alcohol Severity: Moderate Associated Symptoms: denies: Suicidal Thoughts, Suicidal Plan Additional History Per: Prior Records Past Medical History Reviewed: Historical Data, Nursing Documentation, Vital Signs Vital Signs: Last Vital Signs Temp 98 F 02/10/17 20:02 Pulse 83 02/10/17 20:02 Resp 16 02/10/17 20:02 BP 111/60 02/10/17 20:02 Pulse Ox 98 02/10/17 20:02 - Medical History PMH: Bipolar Disorder, Gastritis, HTN, Seizures Other PMH: Alcohol abuse Surgical History: Hernia Repair (b/l inguinal) - [facility] Procedures CONTRAST AORTOGRAM (09/15/14) CONTRAST ARTERIOGRAM-LEG (09/15/14) IMMOBILIZATION OF LEFT LOWER EXTREMITY USING OTHER DEVICE (12/05/14) INJECT/INFUSE NEC (07/01/14) OP RED-INT FIX TIB/FIBUL (09/15/14) PACKED CELL TRANSFUSION (09/15/14) VACCINATION NEC (09/15/14) Family History: States: Unknown Family Hx - Social History Hx Tobacco Use: Yes Hx Alcohol Use: Yes Hx Substance Use: No - Immunization History Hx Tetanus Toxoid Vaccination: No Hx Influenza Vaccination: No Hx Pneumococcal Vaccination: No Review Of Systems Except As Marked, All Systems Reviewed And Found Negative. Constitutional: Negative for: Fever Cardiovascular: Negative for: Chest Pain Gastrointestinal: Negative for: Vomiting, Abdominal Pain Musculoskeletal: Negative for: Neck Pain Neurological: Positive for: Seizures (Pt states he may have had a seizure today) . Negative for: Weakness, Numbness Physical Exam - Physical Exam Appears: Non-toxic, No Acute Distress, Other (AOB) Skin: Normal Color, Warm, Dry, No Rash Head: Atraumatic, Normacephalic Eye(s): bilateral: PERRL, EOMI Tongue: No Bite Neck: Normal ROM, Supple Cardiovascular: Rhythm Regular Respiratory: Normal Breath Sounds, No Accessory Muscle Use Gastrointestinal/Abdominal: Soft, No Tenderness Extremity: Normal ROM Neurological/Psych: Oriented x3, Normal Motor, Normal Sensation Gait: Unable To Assess ED Course And Treatment - Laboratory Results Result Diagrams: 02/10/17 16:18 Interpretation Of Abnormal: Renal insufficiency O2 Sat by Pulse Oximetry: 98 Pulse Ox Interpretation: Normal Reassessment Condition: Improved Disposition Counseled Patient/Family Regarding: Studies Performed, Diagnosis, Need For Followup - Disposition Referrals: Mahin Huerta MD [Staff Provider] - Disposition: HOME/ ROUTINE Disposition Time: 21:20 Condition: IMPROVED Additional Instructions: Avoid alcohol. Drink plenty of fluids. Follow up with your doctor this week for further evaluation and treatment. Return to the ER if you develop worsening of symptoms or have any other concerns. Instructions: Abuse of Alcohol (ED), Impaired Kidney Function (ED) Forms: [facility] (Thai) - Clinical Impression Clinical Impression: Alcohol abuse, Renal insufficiency
[2017-02-10 21:35] VITALS: BP 112/63; PULSE 80
== END 2017-02-10 21:35 | disposition home or self-care (01) ==
LOC: C.ER 14:34
DX: F10.10 Alcohol abuse, uncomplicated (principal); N28.9 Disorder of kidney and ureter, unspecified; Y90.8 Blood alcohol level of 240 mg/100 ml or more
CPT/HCPCS: 80053; 83735; 99285; G0480

== ENCOUNTER 2017-03-12 16:59 | Emergency (ER) | payer MEDICARE, MEDICAID ==
[2017-03-12 20:35] VITALS: RESP 19
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
--- NOTE | 2017-03-12 20:45 | CT ---
EXAM: CT Head Without Intravenous Contrast EXAM DATE/TIME: 03/12/2017 7:17 PM CLINICAL HISTORY: 51 years old, male; Signs and symptoms; Other: Seizure; Additional info: Seizure, alcohol abuse TECHNIQUE: Axial computed tomography images of the head/brain without intravenous contrast. All CT scans at this facility use one or more dose reduction techniques, viz.: automated exposure control; ma/kV adjustment per patient size (including targeted exams where dose is matched to indication; i.e. head); or iterative reconstruction technique. COMPARISON: CT - HEAD W/O CONTRAST 2014-01-28 16:35 FINDINGS: Brain: There is prominence of sulci and gyri. There is asymmetric prominence of the lateral ventricles right greater than left, unchanged. There is mild prominence of third and fourth ventricles. There is no midline shift. There is decreased attenuation in periventricular white matter. There is right frontal encephalomalacia. There are no focal masses. There are no focal hemorrhages. Curtis-white differentiation is visualized. Ventricles: See above Bones: Cranial vault is intact. Soft tissues: unremarkable Sinuses: There is no acute sinusitis. Ears and mastoids: Middle ears and mastoids are unremarkable. Orbits: Orbital contents are unremarkable. IMPRESSION: Atrophy and small vessel disease greater than expected for patient of this age; old right frontal infarct; no bleed
[2017-03-12 21:34] LABS: BASO # 0.1 K/uL (0.0-0.2); BASO % 1.2 % (0.0-2.0); EOS # 0.3 K/uL (0.0-0.7); HEMOGLOBIN 8.4 g/dL (12.0-18.0); LYMPH # 0.5 K/uL (1.0-4.3); LYMPH % 9.4 % (20.0-40.0); MEAN CORPUSCULAR HEMOGLOBIN 28.9 pg (27.0-31.0); MEAN PLATELET VOLUME 10.5 fL (7.2-11.7); MONO # 1.2 K/uL (0.0-0.8); MONO % 23.1 % (0.0-10.0); NEUT # 3.2 K/uL (1.8-7.0); NEUT % 61.3 % (50.0-75.0); NRBC % 0.5 % (0.0-2.0); PLATELET COUNT 154 K/uL (130-400); RBC 2.89 Mil/uL (4.40-5.90); RED CELL DISTRIBUTION WIDTH 19.3 % (11.5-14.5); WHITE BLOOD COUNT 5.3 K/uL (4.8-10.8)
[2017-03-12 21:38] LABS: MEAN CELL VOLUME 87.5 fL (80.0-94.0)
[2017-03-12 21:45] LABS: ALB/GLOB RATIO 0.8 (1.0-2.1); ALBUMIN 3.2 g/dL (3.5-5.0); ALT/SGPT 43 U/L (21-72); AST/SGOT 216 U/L (17-59); BLOOD UREA NITROGEN 27 mg/dL (9-20); GFR AFRICAN-AMERICAN > 60; GFR NON-AFRICAN AMERICAN > 60
[2017-03-12 21:53] LABS: EOSINOPHIL 3 % (0-4); LYMPHOCYTE 23 % (20-40); MONOCYTE 13 % (0-10); NEUTROPHIL 61 % (50-75); TOTAL CELLS COUNTED 100
[2017-03-12 21:54] LABS: ANISOCYTOSIS SLIGHT; HYPOCHROMIC SLIGHT; OVALOCYTES SLIGHT; PLATELET ESTIMATE NORMAL (NORMAL); POLYCHROMIC SLIGHT; TARGET CELLS SLIGHT
[2017-03-12 21:56] LABS: BENZODIAZEPINES, UR NEGATIVE (NEGATIVE); OPIATES, UR NEGATIVE (NEGATIVE); PHENCYCLIDINE, UR NEGATIVE (NEGATIVE)
[2017-03-12 21:57] LABS: BARBITURATES, UR POSITIVE (NEGATIVE)
[2017-03-12 22:34] VITALS: BP 132/70; PULSE 98; TEMP 98.5; O2SAT 100
--- NOTE | 2017-03-13 09:55 | RAD ---
PROCEDURE: CHEST RADIOGRAPH, 1 VIEW HISTORY: Seizure COMPARISON: 01/15/[address] chest 01/15/2017 noted FINDINGS: LUNGS: No consolidative infiltrate PLEURA: No pneumothorax or pleural fluid seen. Minimal right lateral pleural thickening and similar-appearing CARDIOVASCULAR: Borderline cardiomegaly OSSEOUS STRUCTURES: Multiple osseous deformities compatible with multiple old fractures- right posterior and lateral mid to inferior ribs and right clavicle. Thoracic spine not visualized further comment on VISUALIZED UPPER ABDOMEN: Normal. OTHER FINDINGS: None. IMPRESSION: No acute cardiopulmonary pathology. Multiple old fractures right ribs and right clavicle. Thoracic spine suboptimally visualized to assess. Prior CT chest referenced prior thoracic spine deformities. Please note that report
--- NOTE | 2017-03-14 10:29 | CARD ---
APPROVED REPORT EKG Measurement Heart [id number] <Conclusion> Normal sinus rhythm Nonspecific ST and T wave abnormality Abnormal ECG
== END 2017-03-12 22:35 | disposition home or self-care (01) ==
LOC: C.ER 16:59
DX: G40.909 Epilepsy, unspecified, not intractable, without status epilepticus (principal); F10.10 Alcohol abuse, uncomplicated; Y90.8 Blood alcohol level of 240 mg/100 ml or more; I10 Essential (primary) hypertension
CPT/HCPCS: 70450; 71045; 80053; 82550; 82948; 85025; 99285; G0480

== ENCOUNTER 2017-05-16 18:20 | Emergency (ER) | payer MEDICARE, MEDICAID ==
--- NOTE | 2017-05-16 19:24 | C.PDOC ---
History Of Present Illness The patient is brought to the ED via EMS from home for evaluation of a possible seizure. Patient was awake, alert and oriented upon medic arrival and was noted to have some alcohol on breath. Patient is currently pleasant in the ER, denies seizures and admits to drinking alcohol earlier today. Patient denies fever, chills and has no obvious signs of trauma. Time Seen by Provider: 05/16/17 19:24 Chief Complaint (Nursing): Substance Abuse History Per: Patient, EMS History/Exam Limitations: intoxication Onset/Duration Of Symptoms: Hrs Current Symptoms Are (Timing): Better Suicide/Self Injury Attempted (Context): None Modifying Factor(s): Alcohol Severity: None Pain Scale Rating Of: 0 Associated Symptoms: denies: Suicidal Thoughts, Suicidal Plan Involuntary Hold By: None Recent travel outside of the [place]: No Additional History Per: Patient Past Medical History Reviewed: Historical Data, Nursing Documentation, Vital Signs Vital Signs: Last Vital Signs Temp 97.9 F 05/17/17 04:41 Pulse 103 H 05/17/17 04:41 Resp 20 05/17/17 04:41 BP 175/103 H 05/17/17 04:41 Pulse Ox 95 05/17/17 04:41 - Medical History PMH: Bipolar Disorder, Gastritis, HTN, Seizures (Reported but not witnessed) Surgical History: Hernia Repair (b/l inguinal) - [facility] Procedures CONTRAST AORTOGRAM (09/15/14) CONTRAST ARTERIOGRAM-LEG (09/15/14) IMMOBILIZATION OF LEFT LOWER EXTREMITY USING OTHER DEVICE (12/05/14) INJECT/INFUSE NEC (07/01/14) OP RED-INT FIX TIB/FIBUL (09/15/14) PACKED CELL TRANSFUSION (09/15/14) VACCINATION NEC (09/15/14) Family History: States: Unknown Family Hx - Social History Hx Tobacco Use: Yes Hx Alcohol Use: Yes Hx Substance Use: No - Immunization History Hx Tetanus Toxoid Vaccination: No Hx Influenza Vaccination: No Hx Pneumococcal Vaccination: No Review Of Systems Constitutional: Negative for: Fever, Chills Cardiovascular: Negative for: Chest Pain, Palpitations Respiratory: Negative for: Cough, Shortness of Breath Gastrointestinal: Negative for: Nausea, Vomiting, Abdominal Pain, Diarrhea Genitourinary: Negative for: Incontinence Skin: Negative for: Rash, Jaundice, Bruising Neurological: Negative for: Weakness, Numbness, Seizures, Altered Mental Status , Headache, Dizziness Psych: Positive for: Other (EtOH intoxication ). Negative for: Suicidal ideation Physical Exam - Physical Exam Appears: Non-toxic, No Acute Distress Skin: Warm, Dry Head: Normacephalic Eye(s): bilateral: Normal Inspection Oral Mucosa: Moist, Other (alcohol on breath ) Neck: Supple Chest: Symmetrical, No Deformity, No Tenderness Cardiovascular: Rhythm Regular, No Murmur Respiratory: No Rales, No Rhonchi, No Wheezing Gastrointestinal/Abdominal: Soft, No Tenderness, No Guarding, No Rebound Extremity: Normal ROM, Capillary Refill (less than 2 seconds ) Neurological/Psych: Oriented x3 ED Course And Treatment - Laboratory Results Result Diagrams: 05/16/17 20:09 05/16/17 20:09 O2 Sat by Pulse Oximetry: 97 (on RA) Pulse Ox Interpretation: Normal Progress Note: Bloodwork and urinalysis ordered and reviewed. IV Fluids administered. Disposition Counseled Patient/Family Regarding: Studies Performed, Diagnosis, Need For Followup - Disposition Referrals: [facility] [Outside] Disposition: HOME/ ROUTINE Disposition Time: 19:24 Condition: FAIR Instructions: Alcohol Abuse and Alcoholism (DC) Forms: [employer] (Kinyarwanda) - Clinical Impression Clinical Impression: Alcohol intoxication - Scribe Statement The provider has reviewed the documentation as recorded by the Scribe (Claudia Gutierrez) Provider Attestation: All medical record entries made by the Scribe were at my direction and personally dictated by me. I have reviewed the chart and agree that the record accurately reflects my personal performance of the history, physical exam, medical decision making, and the department course for this patient. I have also personally directed, reviewed, and agree with the discharge instructions and disposition.
[2017-05-16] MEDS ORDERED: Sodium Chloride 0.9% 1,000 ML IV ONE (19:26)
[2017-05-16 20:12] LABS: BASO # 0.1 K/uL (0.0-0.2); BASO % 2.1 % (0.0-2.0); EOS # 0.1 K/uL (0.0-0.7); EOS % 1.9 % (0.0-4.0); LYMPH # 1.5 K/uL (1.0-4.3); LYMPH % 22.6 % (20.0-40.0); MEAN CORPUSCULAR HGB CONC 32.3 g/dL (33.0-37.0); MEAN PLATELET VOLUME 10.3 fL (7.2-11.7); MONO # 1.2 K/uL (0.0-0.8); MONO % 17.7 % (0.0-10.0); NEUT # 3.7 K/uL (1.8-7.0); NEUT % 55.7 % (50.0-75.0); NRBC % 0.3 % (0.0-2.0); RBC 3.44 Mil/uL (4.40-5.90); RED CELL DISTRIBUTION WIDTH 16.6 % (11.5-14.5); WHITE BLOOD COUNT 6.6 K/uL (4.8-10.8)
[2017-05-16 20:15] LABS: MEAN CELL VOLUME 89.8 fL (80.0-94.0)
[2017-05-16 20:26] LABS: ALB/GLOB RATIO 0.8 (1.0-2.1); ALBUMIN 3.6 g/dL (3.5-5.0); ALT/SGPT 22 U/L (21-72); AST/SGOT 62 U/L (17-59); BLOOD UREA NITROGEN 19 mg/dL (9-20); CALCIUM 7.1 mg/dl (8.6-10.4); GFR AFRICAN-AMERICAN > 60; GFR NON-AFRICAN AMERICAN > 60
[2017-05-16 20:45] VITALS: RESP 20
[2017-05-16 22:58] LABS: URINE BACTERIA RARE (<OCC); URINE BILIRUBIN NEGATIVE (NEGATIVE); URINE BLOOD 2+ (NEGATIVE); URINE CLARITY Clear (Clear); URINE COLOR Yellow (YELLOW); URINE GLUCOSE (UA) NORMAL (Normal); URINE HYALINE CAST 0-2 /lpf (0-2); URINE LEUKOCYTE ESTERASE NEG Leu/uL (Negative); URINE PROTEIN 2+ mg/dL (NEGATIVE)
[2017-05-16 23:04] LABS: HEPATITIS B SURFACE AG Negative (NEGATIVE)
[2017-05-16 23:10] LABS: HEPATITIS A IGM NEGATIVE (NEGATIVE); HEPATITIS B CORE AB NEGATIVE (NEGATIVE)
[2017-05-16 23:11] LABS: BENZODIAZEPINES, UR NEGATIVE (NEGATIVE); OPIATES, UR NEGATIVE (NEGATIVE); PHENCYCLIDINE, UR NEGATIVE (NEGATIVE)
[2017-05-16 23:22] LABS: HEPATITIS C ANTIBODY NEGATIVE (NEGATIVE)
[2017-05-16 23:24] LABS: BARBITURATES, UR POSITIVE (NEGATIVE)
[2017-05-17 06:05] VITALS: BP 161/91; PULSE 89; TEMP 98.2; O2SAT 99
== END 2017-05-17 06:05 | disposition home or self-care (01) ==
LOC: C.ER 18:20
DX: F10.129 Alcohol abuse with intoxication, unspecified (principal); I10 Essential (primary) hypertension; Y90.6 Blood alcohol level of 120-199 mg/100 ml
CPT/HCPCS: 80053; 80074; 80299; 81001; 85025; 86592; 86703; 86706; 96360; 99285; G0480; J7040

== ENCOUNTER 2018-05-27 09:55 | Outpatient (CLI) | payer MEDICARE, MEDICAID | END 2018-05-27 09:56 | disposition home or self-care (01) | LOC: C.VASC 09:55 ==

== ENCOUNTER 2018-05-29 11:14 | Day surgery (SDC) | payer MEDICARE, MEDICAID ==
[2018-05-24 11:45] VITALS: BMI 24.5
[2018-05-29] MEDS ORDERED: HEPARIN-NS 5,000 UNITS/500 ML 5,000 UNIT/500 ML BAG IV ONE (14:17)
[2018-05-29] MEDS ORDERED: Midazolam 2 MG/2 ML VIAL ONE ×2 (14:18→16:24)
[2018-05-29] MEDS ORDERED: Propofol 10 mg/ml Inj (20 ML) ONE (14:18)
[2018-05-29] MEDS: ceFAZolin 1 gm in NS 1 GM/100 ML BAG IVPB ONE (14:30)
--- NOTE | 2018-05-29 16:35 | PCM.SURG1 ---
Surgeon's Initial Post Op Note - Surgeon's Notes Surgeon: Dr. Erazo Transmission Tester: Dr. Gaviria PGY3 Type of Anesthesia: General LMA Pre-Operative Diagnosis: ESRD on HD Operative Findings: see dictation Post-Operative Diagnosis: same Operation Performed: creation of AV shunt with bovine graft Specimen/Specimens Removed: none Estimated Blood Loss: EBL {In ML}: 50 Blood Products Given: N/A Drains Used: No Drains Post-Op Condition: Good Date of Surgery/Procedure: 05/29/18 Time of Surgery/Procedure: 16:35
[2018-05-29] MEDS: HYDROmorphone 0.5 mg/0.5 ml ISec IVP PRN (16:50)
[2018-05-29 18:02] VITALS: RESP 18; O2SAT 95
[2018-05-29 18:34] VITALS: BP 168/84; PULSE 88; TEMP 97.8
--- NOTE | 2018-05-30 02:46 | OP ---
PROCEDURE DATE: 05/29/2018 PREOPERATIVE DIAGNOSIS: Renal failure. POSTOPERATIVE DIAGNOSIS: Renal failure. PROCEDURE CARRIED OUT: Brachiobasilic shunt, left arm. SURGEON: Gordon Erazo Jr., MD GENERATOR REBUILDER: Dr. Gaviria ANESTHESIOLOGIST: Dr. Villarreal. INDICATIONS: The patient is a 52-year-old man with previous access failure in his right arm, resulting in life threatening hemorrhage. He subsequently was dialyzed with use of a catheter. OPERATIVE FINDINGS: Preoperative vein mapping did not reveal any adequate veins in either cephalic vein, brachial vein, or basilic vein in the arm which is suitable for . DESCRIPTION OF PROCEDURE: Basilic vein in the axilla, brachial artery at the elbow exposed. Vessels were controlled. Heparin was given. End-to-side anastomosis was carried out using loupe magnification, heparin anticoagulation. After obtaining hemostasis, wounds were closed with 5-0 Nylon sutures and clips. There were palpable pulses. There was noted good flow throughout the graft. Blood loss for the procedure was 20 mL. OPERATION CARRIED OUT: Brachiobasilic fistula graft, left arm, Bovine type. Gordon Erazo Jr., MD
== END 2018-05-29 18:30 | disposition home or self-care (01) ==
LOC: C.SDS 11:14
PROVIDERS: ATTEND Surgery Vascular Surgery
DX: I12.0 Hypertensive chronic kidney disease with stage 5 chronic kidney disease or end stage renal disease (principal); N18.6 End stage renal disease; E11.22 Type 2 diabetes mellitus with diabetic chronic kidney disease; Z99.2 Dependence on renal dialysis; Z86.73 Personal history of transient ischemic attack (TIA), and cerebral infarction without residual deficits; K74.60 Unspecified cirrhosis of liver; F31.9 Bipolar disorder, unspecified
CPT/HCPCS: 36821; 82948; J0690; J1170; J1644; J2250; J2704; J3010; J7030; J7040

== ENCOUNTER 2018-06-25 17:53 | Emergency (ER) | payer MEDICARE, MEDICAID ==
[2018-06-25 18:00] VITALS: BMI 22.6
[2018-06-25 18:08] VITALS: RESP 18; TEMP 98.1
--- NOTE | 2018-06-25 18:47 | C.PDOC ---
History Of Present Illness Patient is a 52yo M with PMH epileptic seizures, encephalopathy, ESRD on HD TTS was [facility] sent in from assisted for detox. He was caught drinking alcohol, however patient denies. Patient does report that his legs went weak and he did fall, catching himself with his hands and able to crawl down the wall. He denies hitting his head or LOC. He states his last seizure was over 2 years, but does admit to an epileptic seizure admission at a different hospital 3 weeks ago. 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 It is unclear why he is a resident at [facility]. Admits to current cigarette, and past alcohol and drug use. Denies current drug and alcohol use. Chief Complaint (Nursing): Substance Abuse History Per: Patient History/Exam Limitations: intoxication Past Medical History Reviewed: Historical Data, Nursing Documentation, Vital Signs Vital Signs: Last Vital Signs Temp 98.1 F 06/25/18 18:06 Pulse 72 06/25/18 18:06 Resp 18 06/25/18 18:06 BP 106/67 06/25/18 18:06 Pulse Ox 76 L 06/25/18 18:06 - Medical History PMH: Anemia, Anxiety, Bipolar Disorder, Gastritis, HTN, End Stage Renal Disease, Chronic Kidney Disease, Seizures (Reported but not witnessed) Denies: Diabetes, Hepatitis, Sexually Transmitted Disease Surgical History: Hernia Repair (b/l inguinal) - [facility] Procedures (02/15/18) COMPRESSION OF RIGHT UPPER EXTREMITY USING PRESSURE DRESSING (02/15/18) CONTRAST AORTOGRAM (09/15/14) CONTRAST ARTERIOGRAM-LEG (09/15/14) DRAINAGE OF RIGHT UPPER ARM, OPEN APPROACH (02/15/18) EXCISION OF RIGHT BRACHIAL ARTERY, OPEN APPROACH, DIAGNOSTIC (02/15/18) GROUP PSYCHOTHERAPY (10/11/17) IMMOBILIZATION OF LEFT LOWER EXTREMITY USING OTHER DEVICE (12/05/14) INDIVIDUAL PSYCHOTHERAPY, COGNITIVE-BEHAVIORAL (10/11/17) INJECT/INFUSE NEC (07/01/14) INSERT INFUSION DEV IN R INT JUGULAR VEIN, PERC (10/11/17) INSERTION OF INFUSION DEVICE INTO R ATRIUM, PERC APPROACH (02/15/18) INSERTION OF VAD INTO CHEST SUBCU/FASCIA, PERC APPROACH (02/15/18) OCCLUSION OF RIGHT BRACHIAL VEIN, OPEN APPROACH (02/15/18) OP RED-INT FIX TIB/FIBUL (09/15/14) PACKED CELL TRANSFUSION (09/15/14) REPAIR RIGHT UPPER EXTREMITY, OPEN APPROACH (02/15/18) TRANSFUSE NONAUT RED BLOOD CELLS IN PERIPH VEIN, PERC (02/15/18) ULTRASONOGRAPHY OF RIGHT JUGULAR VEINS, GUIDANCE (02/15/18) VACCINATION NEC (09/15/14) Family History: States: Unknown Family Hx - Social History Hx Tobacco Use: Yes Hx Alcohol Use: Yes Hx Substance Use: Yes (HX: ALCOHOL ABUSE) - Immunization History Hx Tetanus Toxoid Vaccination: No Hx Influenza Vaccination: No Hx Pneumococcal Vaccination: No Review Of Systems Constitutional: Negative for: Fever, Chills, Weakness, Malaise Cardiovascular: Negative for: Chest Pain, Palpitations Respiratory: Negative for: Cough, Shortness of Breath, Wheezing Gastrointestinal: Negative for: Nausea, Vomiting, Diarrhea, Constipation Skin: Positive for: Other (scars from previous lacerations). Negative for: Rash, Lesions, Bruising Neurological: Negative for: Incoordination, Confusion, Altered Mental Status, Headache Psych: Negative for: Anxiety, Depression, Suicidal ideation, Withdrawal Physical Exam - Physical Exam Appears: No Acute Distress Skin: Warm, Dry, Pale Head: Atraumatic, Normacephalic Eye(s): bilateral: PERRL, EOMI, Conjunctiva Pale Nose: No Discharge, No Epistaxis Oral Mucosa: Moist Cardiovascular: Rhythm Regular, No Murmur Respiratory: Normal Breath Sounds, No Accessory Muscle Use, No Rales, No Rhonchi, No Stridor Gastrointestinal/Abdominal: Bowel Sounds, Soft, No Tenderness, No Distention, No Guarding, No Rebound Back: No CVA Tenderness, No Vertebral Tenderness, Paraspinal Tenderness (mid torso paraspinal TTP) Extremity: Normal ROM, No Pedal Edema, Capillary Refill (< 2 sec), Other (Permacath in R chest) Pulses: Right Brachial: Normal, Left Radial: Normal DTR: Bicep (R): 2+, Bicep (L): 2+, Knee (R): 2+, Knee (L): 2+ Neurological/Psych: Oriented x3, Normal Speech (not slurred speech), Eyes Open With Command Gait: Unsteady Extremity: Right: No Drift (no tremor), Left: No Drift ED Course And Treatment - Laboratory Results Result Diagrams: 06/25/18 18:39 06/25/18 18:39 O2 Sat by Pulse Oximetry: 76 Medical Decision Making Medical Decision Making: - labs - ammonia - UDS, BAL Due to elevated ammonia level, Lactulose 20 PO once given since unsure if received afternoon lactulose dose. Per paperwork that arrived with patient from assisted, 06/13 ammonia level 109, downtrending BAL <10, UDS negative Patient is clinically stable and sober. Will arrange for transport and return to [facility]. Disposition - Disposition Disposition: OTHER INSTITUTION Disposition Time: 20:47 Condition: STABLE Instructions: Epilepsy in Adults, Medication Safety, Adult Forms: [employer] (Sami) Print Language: SLOVENIAN - Clinical Impression Clinical Impression: Drug abuse, Polypharmacy
[2018-06-25 18:49] LABS: BASO # 0.1 K/uL (0.0-0.2); EOS # 0.2 K/uL (0.0-0.7); EOS % 2.1 % (0.0-4.0); HEMOGLOBIN 11.9 g/dL (12.0-18.0); LYMPH # 1.9 K/uL (1.0-4.3); LYMPH % 22.2 % (20.0-40.0); MEAN CELL VOLUME 95.2 fL (80.0-94.0); MEAN CORPUSCULAR HEMOGLOBIN 31.2 pg (27.0-31.0); MEAN CORPUSCULAR HGB CONC 32.8 g/dL (33.0-37.0); MEAN PLATELET VOLUME 9.9 fL (7.2-11.7); MONO # 1.9 K/uL (0.0-0.8); NEUT # 4.5 K/uL (1.8-7.0); NEUT % 52.7 % (50.0-75.0); NRBC % 0.1 % (0.0-2.0); PLATELET COUNT 171 K/uL (130-400); RBC 3.82 Mil/uL (4.40-5.90); RED CELL DISTRIBUTION WIDTH 18.6 % (11.5-14.5); WHITE BLOOD COUNT 8.5 K/uL (4.8-10.8)
[2018-06-25 18:56] LABS: ALB/GLOB RATIO 1.1 (1.0-2.1); ALBUMIN 3.7 g/dL (3.5-5.0); ALT/SGPT 13 U/L (21-72); AST/SGOT 32 U/L (17-59); BLOOD UREA NITROGEN 27 mg/dL (9-20); CALCIUM 8.8 mg/dl (8.6-10.4); GFR NON-AFRICAN AMERICAN 29
[2018-06-25 20:11] LABS: EOSINOPHIL 1 % (0-4); LYMPHOCYTE 20 % (20-40); MONOCYTE 23 % (0-10); NEUTROPHIL 56 % (50-75); PLATELET ESTIMATE NORMAL (NORMAL); TOTAL CELLS COUNTED 100
[2018-06-25 20:23] LABS: BARBITURATES, UR NEGATIVE (NEGATIVE); BENZODIAZEPINES, UR NEGATIVE (NEGATIVE); OPIATES, UR NEGATIVE (NEGATIVE); PHENCYCLIDINE, UR NEGATIVE (NEGATIVE)
[2018-06-25 20:41] VITALS: BP 132/70; PULSE 74
[2018-06-25 20:46] VITALS: O2SAT 76
== END 2018-06-25 22:40 | disposition designated cancer center or children's hospital (05) ==
LOC: C.ER 17:53
DX: F19.10 Other psychoactive substance abuse, uncomplicated (principal)
CPT/HCPCS: 80053; 82140; 85025; 99285; G0480